=== PATIENT | female | born 1955 | race American Indian/Alaskan Native ===

== ENCOUNTER 2019-12-27 00:40 | Emergency (ER) | payer MEDICARE, OTHER, SELFPAY ==
[2019-12-27 00:44] VITALS: BP 130/61; PULSE 94; RESP 18; TEMP 36.6; O2SAT 100; BMI 35.9
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
--- NOTE | 2019-12-27 00:59 | DI.CT.S_ITS ---
PROCEDURE: CT ABDOMEN PELVIS W CON INDICATIONS: Bilateral upper abdominal pain TECHNIQUE: After the administration of intravenous contrast, 5 mm thick sections acquired from the diaphragm to the symphysis. 5 mm coronal and sagittal reformats were acquired. For radiation dose reduction, the following was used: automated exposure control, adjustment of mA and/or kV according to patient size. COMPARISON: None. FINDINGS: Image quality: Excellent. ABDOMEN: Lung bases: There is a small left lower lobe pulmonary nodule measuring up to 6 mm. Mild dependent atelectasis and scarring are also demonstrated. Heart size is normal. Solid organs: Evaluation of the liver demonstrates no focal hepatic lesions. The gallbladder is surgically absent. There is mild biliary ductal dilatation likely related to prior cholecystectomy. Pancreas enhances normally. No peripancreatic fat stranding or fluid collections. No pancreatic duct dilatation. The spleen is normal in size. No adrenal nodules. Kidneys demonstrate no hydronephrosis. There is focal renal cortical thinning in the superior pole of the left kidney which may represent sequelae of prior infection, trauma, or infarct. Peritoneum and bowel: Bowel loops demonstrate normal wall thickness and caliber. The appendix is normal in appearance. There is mild colonic diverticulosis without acute diverticulitis. No free fluid or air. Nodes and vessels: No retroperitoneal or mesenteric adenopathy by size criteria. Aorta and inferior vena cava are normal in size. Miscellaneous: No ventral hernias. PELVIS: Genitourinary: There is slight concentric bladder wall thickening. The uterus is surgically absent. Miscellaneous: No inguinal hernias or adenopathy. Bones: No suspicious bony lesions. No vertebral body compression fractures. IMPRESSION: 1. No definite acute intra-abdominal abnormality to correlate with patient's pain symptoms. 2. Small left lower lobe 6 mm pulmonary nodule is indeterminate. Recommend comparison with prior outside studies if available. In the absence of prior exams, a follow-up chest CT is recommended in 12 months to demonstrate stability. 3. Colonic diverticulosis without acute diverticulitis. 4. Slight concentric bladder wall thickening may be incidental or reflect a mild cystitis. Concordant with preliminary interpretation. Dictated by: Suhail Sykes M.D. on 12/27/2019 at 9:20 Approved by: Suhail Sykes M.D. on 12/27/2019 at 9:26
[2019-12-27 01:14] LABS: Add Manual Diff / Slide Review NO; Basophils Absolute Auto 0 /uL (0-100); Basophils Percent Auto 0.5 % (0-2); Eosinophils Absolute Auto 100 /uL (0-450); Hematocrit 40.9 % (36-46); Hemoglobin 13.6 g/dL (12.0-16.0); Lymphocytes Absolute Auto 1100 /uL (1100-4500); Lymphocytes Percent Auto 14.1 % (25-40); Mean Corpuscular HGB Conc 33.1 % (30-36); Mean Corpuscular Hemoglobin 28.1 PG (26-34); Monocytes Absolute Auto 700 /uL (0-900); Monocytes Percent Auto 9.5 % (3-14); Neutrophils Absolute Auto 5900 /uL (1500-7000); Neutrophils Percent Auto 74.9 % (50-75); Platelet Count 290 X10^3/uL (150-400); Red Blood Cell Count 4.82 X10^6/uL (4.0-5.2); Red Cell Distribution Width 14.1 % (11.6-14.8); White Blood Cell Count 7.9 X10^3/uL (4.5-11.0)
[2019-12-27 01:20] LABS: Lipase 44 U/L (23-300)
[2019-12-27 01:22] LABS: Alanine Aminotransferase 17 IU/L (<35); Albumin Globulin Ratio 1.1 (1.0-2.8); Alkaline Phosphatase 98 U/L (38-126); Aspartate Aminotransferase 18 IU/L (14-36); BUN Creatinine Ratio 13.2 (6-22); Bilirubin Total 0.4 mg/dL (0.2-1.3); Blood Urea Nitrogen 9 mg/dL (7-17); Calcium 9.1 mg/dL (8.4-10.2); Carbon Dioxide 32 mmol/L (22-32); Chloride 102 mmol/L (98-107); Estimated Glomerular Filt Rate > 60.0 mL/min (>60); Globulin 3.5 g/dL (1.7-4.1); Glucose 205 mg/dL (80-110); HEMOLYSIS 27 (0-50); Potassium 4.8 mmol/L (3.4-5.1); Sodium 138 mmol/L (137-145); Total Protein 7.5 g/dL (6.3-8.2)
[2019-12-27] MEDS: SODIUM CHLORIDE 0.9% 1,000 ML 1000 ML IV (01:47)
[2019-12-27] MEDS: metroNIDAZOLE 250 MG TABLET 500 MG PO (02:50)
[2019-12-27 03:24] VITALS: BP 159/73; PULSE 100; RESP 16; O2SAT 97
[2019-12-29 20:52] LABS: Chlamydia trachomatis Negative (Negative); Mycoplasma genitalium Negative (Negative); Neisseria gonorrhoeae Negative (Negative)
== END 2019-12-27 03:25 | disposition home or self-care (01) ==
LOC: ED 03:18
PROVIDERS: Emergency Provider Emergency Medicine
DX: N76.0 Acute vaginitis (principal); M54.5 Low back pain; R30.0 Dysuria; L29.2 Pruritus vulvae; R07.9 Chest pain, unspecified
CPT/HCPCS: 36415; 74177; 80053; 81003; 83690; 85025; 87081; 87210; 87220; 87491; 87591; 93005; 93010; 96360; 99284; Q9967

== ENCOUNTER 2020-05-18 02:06 | Emergency (ER) | payer MEDICARE, OTHER, SELFPAY ==
[2020-05-18 02:19] VITALS: BP 125/55; PULSE 90; RESP 18; TEMP 36.7; O2SAT 96; BMI 34.0
--- NOTE | 2020-05-18 02:20 | PC.NURSE ---
Coordinator confirmed that we do not carry Invega. informed
--- NOTE | 2020-05-18 02:25 | ED_ITS ---
HPI - General Adult General Chief complaint: Recheck/Abnormal Lab/Rx Stated complaint: Meeds medication Time Seen by Provider: 05/18/20 02:16 Source: patient Mode of arrival: Ambulatory Limitations: no limitations History of Present Illness HPI narrative: Patient here for request to have her dose of Invega. She states he has been 9 days since she was was to have it monthly. She goes to local clinic here in town. We do not carry that medication here. In the hospital. Denies any SI or HI. Patient was waiting at the clinic tonight, please informed her that she cannot be waiting at the facility until it opens. She came here to see if we have the medication. We do not. We called switch house operator to check. Related Data Allergies Allergy/AdvReac Type Severity Reaction Status Date / Time alendronate sodium Allergy Verified 05/18/20 02:19 Penicillins Allergy Verified 05/18/20 02:19 Review of Systems Review of Systems Narrative: GENERAL: Denies chills, fatigue, malaise, fever, sweats. HEENT: Denies sinus pain, ear pain, sore throat RESPIRATORY: Denies dyspnea, cough CARDIOVASCULAR: Denies chest pain, palpitations GASTROINTESTINAL: Denies nausea, vomiting, abdominal pain : Denies dysuria, frequency, hematuria MUSCULOSKELETAL: denies muscle or bony pain SKIN: Denies rash, skin lesions NEUROLOGIC: Denies weakness, numbness PSYCH: No SI or HI ROS Unobtainable: All systems reviewed & are unremarkable except as noted in HPI and below Patient History Medical History Medical history unknown Social History Smoking Status: Current every day smoker Smoking Status: Current every day smoker tobacco type: cigarettes alcohol intake frequency: holidays/special occasions only Substance Use Type: does not use Exam Narrative Exam Narrative: GENERAL: in no distress, not toxic not dyspneic, well groomed. Not disheveled HEAD: Normocephalic. EYES: Pupils equal round CARDIOVASCULAR: Regular rate and rhythm without murmurs RESPIRATORY: Clear to auscultation. Breath sounds equal bilaterally. No wheezes, rales, or rhonchi. GASTROINTESTINAL: Abdomen soft, non-tender EXTREMITIES: No gross deformities. BACK: No flank tenderness. NEURO: AOx4. SKIN: Warm and dry PSYCH: Not anxious, is cooperative, no SI or HI, no flight of ideas. No pressured speech. Not combative. Initial Vital Signs Initial Vital Signs: Vital Signs Temperature 98.0 F 05/18/20 02:19 Pulse Rate 90 05/18/20 02:19 Respiratory Rate 18 05/18/20 02:19 Blood Pressure 125/55 L 05/18/20 02:19 Pulse Oximetry 96 05/18/20 02:19 Course Course Course Narrative: No new issues during course of stay, patient did not stay to wait for discharge papers Reevaluation(s) Reevaluation #1: Informed patient we do not have the medication. She states she understands. She states she will go back home and wait for the clinic to open. Time: 02:32 Vital Signs Vital signs: Vital Signs - 8 hr 05/18/20 02:19 Temperature 98.0 F Pulse Rate 90 Respiratory Rate 18 Blood Pressure 125/55 L Pulse Oximetry 96 Medical Decision Making Differential Diagnosis Differential Diagnosis: Medication refill MDM Narrative Medical decision making narrative: Appropriate for discharge. Patient denies any SI or HI. Patient is cooperative. She understands we do not care that medication Discharge Plan Departure Patient Disposition: Home Clinical Impression: Encounter for medication refill Instructions: How to Refill a Prescription Activity Restrictions/Additional Instructions: Return if worse or if any questions or concerns. Go to your clinic this morning when it opens to have your Invega medication.
--- NOTE | 2020-05-18 02:40 | PC.NURSE ---
Pt came back immediately after being d/c and she had found her last unopened rx of invega 234mg. Cleared the box/dose/correct med with Dr. Mcgee and Danielle, chain saw mechanic and MD okayed for medication to be administered. Dose was given in pt's R deltoid per pt's request.
== END 2020-05-18 02:32 | disposition home or self-care (01) ==
PROVIDERS: Emergency Provider Emergency Medicine
DX: Z76.0 Encounter for issue of repeat prescription (principal)
CPT/HCPCS: 99281

== ENCOUNTER 2020-06-16 00:48 | Emergency (ER) | payer MEDICARE, OTHER, SELFPAY ==
--- NOTE | 2020-06-16 00:51 | ED_ITS ---
HPI - General Adult General Chief complaint: Recheck/Abnormal Lab/Rx Stated complaint: has lump on back of head, itching mutiple complain Time Seen by Provider: 06/16/20 00:51 History of Present Illness HPI narrative: 65-year-old woman with myriad of unspecific requests and complaints who would like her Invega injection. She states that she does not have a psychiatric diagnosis rather she has only a ?chemical imbalance ?. She describes years of psychiatric medications as well as psychiatric hospitalizations at [facility] when she was ?out of her mind?. She also describes visits to various other emergency department and interactions with psychiatric care. She states that she has been banned from the [facility]. The provider there who had been prescribing her Invega apparently has discharged her from the practice. The patient has reportedly gone to the pharmacy multiple times daily asking for her medication and has now been banned from the pharmacy. She states that she did talk to someone at [facility] today and there were 2 people who were working on straightening out the issues but they were not able to obtain her Invega today. She states that it is approximately 10 days overdue. From this point, the conversation became significantly more tangential. She has a myriad of complaints including dry skin, a bump on her head, multiple complaints of persecution (although, in light of the various clinics and pharmacies the apparently do have restraining orders out against her these complaints of persecution may be real), she states that she does not feel safe. She does have a car and it sounds [place] [facility] and has not had much clinical interaction with [facility] or clinics in [place]. Other conversation continued, she did have normal speech fluency and clearly understand some of the difficulties and intricacies of the medical system. She describes trying most of the antipsychotics that I discussed as an option to her Invega. She requested brand name only and went on to along explanation of requiring Plaquenil as a brand only. As our conversation joel to a close her requests and manipulative behavior began to escalate. I was forced to explain that in an emergency department we are able to help with an emergent situation and the plethora of issues that she was bringing up at the end of our discussion were not appropriate for further evaluation in the emergency department. Related Data Previous Rx's Medication Instructions Recorded olanzapine [Zyprexa] 20 mg PO BEDTIME #10 tab 03/05/21 Allergies Allergy/AdvReac Type Severity Reaction Status Date / Time alendronate sodium Allergy Verified 05/18/20 02:19 Penicillins Allergy Verified 05/18/20 02:19 Review of Systems Review of Systems ROS Unobtainable: All systems reviewed & are unremarkable except as noted in HPI and below Patient History Medical History Co-occurrence of multiple psychiatric disorders Medical history unknown Social History Smoking Status: Current every day smoker Smoking Status: Current every day smoker tobacco type: cigarettes alcohol intake frequency: holidays/special occasions only Substance Use Type: does not use Exam Narrative Exam Narrative: General: Healthy appearing, in no acute distress. Able to speak in full sentences, slightly tangential HEENT: Moist mucous membranes, normal sclera with reactive pupils, she has a small follicular cyst at the occiput of her scalp that is not infected Respiratory: Full and symmetrical air movement Cardiac: Regular rate and rhythm Abdomen: Soft, nontender, good bowel tones, no flank pain Skin: Very dry with excoriation to the back. There is a 2 x 3 cm depigmented area over the right flank that appears chronic Neurologic: Grossly neurologically intact with no obvious asymmetries or abnormalities Extremities: No trauma, well perfused Psych: Tangential in slightly disorganized. No signs of auditory or visual hallucinations. Speech is nonpressured. Behavior is extraordinarily manipulative Initial Vital Signs Initial Vital Signs: Vital Signs Temperature 97.8 F 06/16/20 01:00 Pulse Rate 96 H 06/16/20 01:00 Respiratory Rate 20 06/16/20 01:00 Blood Pressure 141/77 H 06/16/20 01:00 Pulse Oximetry 100 06/16/20 01:00 Course Vital Signs Vital signs: Vital Signs - 8 hr 06/16/20 01:00 Temperature 97.8 F Pulse Rate 96 H Respiratory Rate 20 Blood Pressure 141/77 H Pulse Oximetry 100 Medical Decision Making Medical Records Medical records reviewed: Yes I reviewed the patient's medical records. MDM Narrative Medical decision making narrative: 65-year-old woman clearly with multiple psychiatric issues that she is not able to elucidate requesting an injection of Invega. Explained to her that this is not an option through an inpatient or emergency facility. It sounds like she is had multiple behavioral issues with prior psychiatric providers as well as pharmacies which are precipitating the difficulties in obtaining the Invega. Offered multiple options of second- generation antipsychotics as a bridge. Was finally willing to except olanzapine but demanded that it be brand only. Finally offered her a prescription for 20 mg of olanzapine at bedtime tried to review findings and side effects and stressed that this was simply a bridging option until the Invega was available. Encouraged her to follow-up with the [facility] team that seem to be helping her earlier today. At this point she is neither suicidal nor homicidal. She is able to take care of herself and function outside of the manipulative and axis II psychiatric traits that she is exhibiting. She is safe for discharge Discharge Plan Departure Patient Disposition: Home Clinical Impression: Encounter for medication refill Activity Restrictions/Additional Instructions: As you have been told with previous ER visits, Invega is not a medication that will ever be available through any emergency department. This needs to be through your outpatient psychiatric clinic. You do need to follow-up with [facility], the clinic that seem to be helping you earlier today, to figure out how to get your Invega prescribed, picked up and injected. In the meantime, olanzapine/Zyprexa is very similar to Invega and something I can prescribe until your able to get the shot. The equivalent does to the Invega shot for the olanzapine/Zyprexa is 20 mg. I would recommend taking it in the evening as it can make you sleepy. At your request I will write the prescription for Zyprexa only. You do need to follow through with daytime visits to your psychiatric community sources. Prescriptions: New olanzapine [Zyprexa] 20 mg tablet 20 mg PO BEDTIME Qty: 10 RF: 0
[2020-06-16 01:00] VITALS: BP 141/77; PULSE 96; RESP 20; TEMP 36.6; O2SAT 100
--- NOTE | 2020-06-16 01:29 | PC.NURSE ---
She was given a sandwich and juice and ate it.
== END 2020-06-16 01:41 | disposition home or self-care (01) ==
PROVIDERS: Emergency Provider Emergency Medicine
DX: Z76.0 Encounter for issue of repeat prescription (principal)
CPT/HCPCS: 99281

== ENCOUNTER 2020-07-18 19:19 | Emergency (ER) | payer MEDICARE, OTHER, SELFPAY ==
[2020-07-18 19:33] VITALS: BP 178/82; PULSE 105; RESP 21; TEMP 36.9; O2SAT 98; BMI 40.3
--- NOTE | 2020-07-18 23:30 | PC.NURSE ---
Pt resting in bed. Currently denies pain and denies shortness of breath. Assisted to bathroom. CBG 291
[2020-07-19 02:53] VITALS: BP 152/84; PULSE 71; RESP 14; O2SAT 95
[2020-07-19 03:37] VITALS: BP 154/70; PULSE 97; RESP 18; O2SAT 97
--- NOTE | 2020-07-19 05:02 | ED_ITS ---
HPI - Female Genitourinary General Chief complaint: Upper Respiratory Symptoms Stated complaint: pain, fever, difficulty breathing, multiple issues Time Seen by Provider: 07/19/20 04:47 Source: patient Mode of arrival: Ambulatory Limitations: no limitations History of Present Illness HPI Narrative: Patient is a 65-year-old female with history of psychiatric illness who presents with painful frequent urination. She says it is every day. She is currently sleepy after being in the emergency department for 9 hours. She has frequently comes to the ED and requesting an Invega shot which apparently she did initially request she has yet to receive an Invega shot during any of her emergency department visits. She is sleepy but arousable and answers some questions she denies fever chills back pain nausea vomiting or stomach pain. MD Complaint: dysuria Onset (ago): day(s) Related Data Previous Rx's Medication Instructions Recorded olanzapine [Zyprexa] 20 mg PO BEDTIME #10 tab 06/16/20 Allergies Allergy/AdvReac Type Severity Reaction Status Date / Time alendronate sodium Allergy Verified 05/18/20 02:19 Penicillins Allergy Verified 05/18/20 02:19 Review of Systems Review of Systems ROS Unobtainable: All systems reviewed & are unremarkable except as noted in HPI and below Constitutional Constitutional: Denies chills and Denies fever(s) Cardiovascular Cardiovascular: Denies chest pain, Denies leg edema and Denies dyspnea Respiratory Respiratory: Denies cough and Denies dyspnea Gastrointestinal Gastrointestinal: Denies abdominal pain, Denies cramping and Denies nausea Integumentary/Breasts Skin/Breast: Denies rash Neurologic Neurologic: Denies convulsions Patient History Medical History Co-occurrence of multiple psychiatric disorders Medical history unknown tobacco type: cigarettes alcohol intake frequency: a few times a month Substance Use Type: does not use Exam Initial Vital Signs Initial Vital Signs: Vital Signs Temperature 98.4 F 07/18/20 19:33 Pulse Rate 105 H 07/18/20 19:33 Respiratory Rate 21 07/18/20 19:33 Blood Pressure 178/82 H 07/18/20 19:33 Pulse Oximetry 98 07/18/20 19:33 GENERAL: Sleeping overweight female HEENT: Head atraumatic,EOMI, pupils reactive, face symmetric, moist mucous membranes CARDIOVASCULAR: Regular rate and rhythm without murmurs, rubs or gallops. RESPIRATORY: Breath sounds equal bilaterally, no wheezes rales or rhonchi. ABDOMEN: Soft, nontender. Normoactive bowel sounds all 4 quadrants. No guarding or rebound. : No flank pain EXTREMITIES: Normal range of motion, no clubbing or edema. Neurovascularly intact NEUROLOGICAL: No focal deficit SKIN: Warm, dry, no laceration, no petechiae, no rashes or lesions. Course Vital Signs Vital signs: Vital Signs - 8 hr 07/19/20 02:53 07/19/20 03:37 07/19/20 05:51 Temperature 99.5 F Pulse Rate 71 97 H 75 Respiratory Rate 14 18 16 Blood Pressure 152/84 H 154/70 H 115/62 Pulse Oximetry 95 97 98 MDM - Female Genitourinary Lab Data Labs: Point of Care Testing Glucose POC 291 Urine Dip Bedside Urine Glucose 1000 mg/dl Bedside Urine Bilirubin - Negative Bedside Urine Ketone - Negative Urine Specific [place] 1.020 Bedside Urine Occult Blood - Negative Bedside Urine Protein - Negative Bedside Urine Urobilinogen - Negative Bedside Urine Nitrite - Negative Bedside Urine Leukocytes - Negative Esterase Discharge Plan Departure Patient Disposition: Home Clinical Impression: Feared complaint without diagnosis Activity Restrictions/Additional Instructions: *You have been diagnosed with you do not have a bladder infection *Continue to take medications as directed *Follow up with your primary care provider in 2-3 days *Return to ER if you should have any new, worsening or concerning symptoms Prescriptions: No Action olanzapine [Zyprexa] 20 mg tablet 20 mg PO BEDTIME Qty: 10 RF: 0
[2020-07-19 05:51] VITALS: BP 115/62; PULSE 75; RESP 16; TEMP 37.5; O2SAT 98
== END 2020-07-19 05:54 | disposition home or self-care (01) ==
PROVIDERS: Emergency Provider Emergency Medicine
DX: R30.0 Dysuria (principal); R35.0 Frequency of micturition
CPT/HCPCS: 81003; 82962; 99282

== ENCOUNTER 2020-09-01 20:44 | Emergency (ER) | payer MEDICARE, OTHER, SELFPAY ==
[2020-09-01 20:49] VITALS: BP 143/63; PULSE 71; RESP 16; TEMP 36.7; O2SAT 98; BMI 36.8
--- NOTE | 2020-09-01 21:03 | PC.NURSE ---
Pt verbally abusive to staff, yelling from room. Call martinez in place and encouraged pt to utilize. Pt accused me of keeping her away from her. informed that if he presented to see her we would be happy to allow him in. She states that her family is keeping him from seeing her. Encouraged to call her . States she is not happy with care, told she could leave at any point in time. Side rail down.
[2020-09-01] MEDS: IBUPROFEN 400 MG TABLET PO (21:10)
--- NOTE | 2020-09-01 21:12 | PC.NURSE ---
Pt states pain in both knees, pt ambulated to the bathroom and is currently walking around the room.
--- NOTE | 2020-09-01 21:18 | DI.RAD.S_ITS ---
PROCEDURE: XR KNEE LT 3V INDICATIONS: knee pain, possible injury TECHNIQUE: 3 views of the knee were acquired. COMPARISON: None. FINDINGS: Bones: No fractures or dislocations. No suspicious bony lesions. Severe degenerative arthritis with tricompartment osteophytes and severe medial compartment joint space loss. Soft tissues: Small joint effusion. No suspicious soft tissue calcifications. IMPRESSION: Severe degenerative arthritis. No evidence acute bony abnormality of the left knee. If clinical suspicion and/or symptoms persist, further assessment with repeat plain films, or advanced imaging (e.g., CT, MRI, or bone scan) may be helpful for further assessment. Dictated by: Davie Hall M.D. on 09/01/2020 at 21:59 Approved by: Davie Hall M.D. on 09/01/2020 at 22:00
--- NOTE | 2020-09-01 21:18 | DI.RAD.S_ITS ---
PROCEDURE: XR KNEE RT 3V INDICATIONS: severe pain, swelling, possible injury TECHNIQUE: 3 views of the knee were acquired. COMPARISON: None. FINDINGS: Bones: No fractures or dislocations. No suspicious bony lesions. Mild tricompartment degenerative arthritis. Soft tissues: No joint effusion. No suspicious soft tissue calcifications. IMPRESSION: Degenerative arthritis. No evidence acute bony abnormality of the right knee. If clinical suspicion and/or symptoms persist, further assessment with repeat plain films, or advanced imaging (e.g., CT, MRI, or bone scan) may be helpful for further assessment. Dictated by: Davie Hall M.D. on 09/01/2020 at 22:00 Approved by: Davie Hall M.D. on 09/01/2020 at 22:01
== END 2020-09-01 22:35 | disposition left against medical advice (07) ==
PROVIDERS: Emergency Provider Emergency Medicine
DX: M25.562 Pain in left knee (principal); M25.561 Pain in right knee
CPT/HCPCS: 73562; 99283

== ENCOUNTER 2020-09-02 21:10 | Emergency (ER) | payer MEDICARE, OTHER, SELFPAY ==
[2020-09-02 21:34] VITALS: BP 156/77; PULSE 93; RESP 18; TEMP 37.1; O2SAT 99
[2020-09-02 21:57] LABS: Bacteria Urine None Seen; RBC Urine None Seen (0-5/HPF)
[2020-09-02 22:01] LABS: Appearance Urine UA CLEAR; Bilirubin Urine UA NEGATIVE (NEGATIVE); Color Urine UA YELLOW; Glucose Urine UA TRACE g/dL (Negative); Ketones Urine UA NEGATIVE (NEGATIVE); Leukocyte Esterase Urine UA TRACE (NEGATIVE); Nitrite Urine UA NEGATIVE (Negative); Occult Blood Urine UA NEGATIVE (Negative); Protein Urine UA NEGATIVE (Negative); Specific Gravity Urine UA 1.025 (1.000-1.035)
[2020-09-02 22:04] LABS: Pregnancy Test Urine Negative (Negative)
[2020-09-02 22:07] LABS: Ur Creatinine 20 (Normal); Ur Specific Gravity 1.025 (Normal); Urine pH 5 (Normal)
[2020-09-02 22:08] LABS: UR Morphine/Opiate cutoff 300 Negative (Negative); Urine Amphetamines Negative (Negative); Urine Barbiturates Negative (Negative); Urine Benzodiazepines Negative (Negative); Urine Cocaine Negative (Negative); Urine MDMA Negative (Negative); Urine Methadone Negative (Negative); Urine Methamphetamines Negative (Negative); Urine Oxycodone Negative (Negative); Urine Phencyclidine Negative (Negative); Urine Tetrahydrocannabinol Negative (Negative); Urine Tricyclic Antidepressant Negative (Negative)
[2020-09-02 22:15] LABS: Squamous Epithelial Cell Urine 1-5 /HPF (0-5/HPF); WBC Urine 0-1/HPF (0-5/HPF)
[2020-09-02 22:16] LABS: Culture Indicated Urine Specimen Cultured; Mucus Urine 1+ (Negative)
--- NOTE | 2020-09-02 22:19 | ED_ITS ---
HPI - Skin/Abscess/Foreign Bdy General Chief complaint: Skin/Abscess/Foreign Body Stated complaint: Fells like bugs are crawling all over, skin burnin Time Seen by Provider: 09/02/20 21:18 Source: patient Mode of arrival: Wheelchair Limitations: no limitations History of Present Illness HPI narrative: 65F smoker with history of HTN, schizophrenia, NIDDM, and delusional disorder returns to the emergency department this evening for evaluation. She comes by EMS for evaluation of bilateral knee pain stating that she has had torn meniscus in both knees for quite some time and aggravated them by walking for the normal today. Additionally she states that she feels like she has bugs crawling on her skin and her head and bottom itch. She states she has not been taking her medication for quite some time and is quite angry that no one has given her medications. She denies any suicidal or homicidal ideation. She has tangential responses to most questions but is very articulate and well-spoken. MD complaint: other Tetanus up to date: unsure Severity: mild Quality: burning Pain Consistency: constant Relieving factors: none Exacerbating factors: movement Treatments prior to arrival: none Related Data Previous Rx's Medication Instructions Recorded olanzapine [Zyprexa] 20 mg PO BEDTIME #10 tab 06/16/20 metformin 500 mg PO DAILY #20 tab 09/03/20 paliperidone palmitate [Invega 234 mg IM QMONTH #1.5 ml 09/03/20 Sustenna] Allergies Allergy/AdvReac Type Severity Reaction Status Date / Time alendronate sodium Allergy Verified 09/01/20 20:53 Penicillins Allergy Verified 09/01/20 20:53 Review of Systems Constitutional Constitutional: Denies chills, Denies fatigue, Denies fever(s), Denies frequent falls, Denies lethargy and Denies weakness Eyes Eyes: Denies change in vision, Denies eye discharge, Denies irritation and Denies loss of vision ENT Ears, Nose, Mouth, and Throat: Denies change in voice, Denies dizziness, Denies neck pain, Denies sore throat and Denies throat swelling Cardiovascular Cardiovascular: Denies chest pain, Denies irregular heart rhythm, Denies lightheadedness, Denies palpitations, Denies dyspnea, Denies dyspnea on exertion and Denies orthopnea Respiratory Respiratory: Denies cough, Denies dyspnea, Denies dyspnea on exertion and Denies wheezing Gastrointestinal Gastrointestinal: Denies abdominal pain, Denies change in bowel habits, Denies diarrhea, Denies nausea and Denies vomiting Musculoskeletal Musculoskeletal: Reports arthralgias, Reports joint swelling, Reports limited r nata of motion, Denies neck pain and Denies numbness Integumentary/Breasts Skin/Breast: Denies pruritus, Denies erythema, Denies rash and Denies wounds Neurologic Neurologic: Denies behavioral changes, Denies confusion, Denies dizziness, Denies frequent falls, Denies loss of vision, Denies numbness and Denies weakness Psychiatric Psychiatric: Denies anxiety, Denies behavioral changes, Denies confusion, Denies depression, Denies homicidal ideation and Denies suicidal ideation Endocrine Endocrine: Denies fatigue, Denies flushing and Denies palpitations Hematologic/Lymphatic Hematologic/Lymphatic: Denies easy bruising Allergic/Immunologic Allergic/Immunologic: Denies urticaria, Denies throat swelling and Denies wheezing Patient History Medical History Co-occurrence of multiple psychiatric disorders Medical history unknown Social History Smoking Status: Current every day smoker Smoking Status: Current every day smoker tobacco type: cigarettes alcohol intake frequency: a few times a month Substance Use Type: does not use Exam Narrative Exam Narrative: GEN: AOx3 and in mild distress, complaining of knee pain, angry and confrontational but alert and aware. Demonstrates capacity to make her own decisions EYES: Pupils are equal, round, and reactive to light and accommodation. Extraoccular muscles are intact bilaterally. There is no subconjunctival hemorrhage or exudate. CHEST: Lungs are clear to auscultation bilaterally and free of wheezes, rales, or rhonchi. Heart rate is regular rhythm, there are no murmurs, clicks, rubs, or gallops. There is no chest wall tenderness. ABD: Abdomen is soft and nontender. There is no guarding or rebound. Bowel sounds are normal in all 4 quadrants. There is no mass or organomegaly. EXT: Full painless ROM of all extremities with no loss of sensation or strength. No knee effusion, erythema, ligamentous instability, or external manifestation of injury SKIN: Warm, pink, and dry. No erythema or rash Initial Vital Signs Initial Vital Signs: Vital Signs Temperature 98.8 F 09/02/20 21:34 Pulse Rate 93 H 09/02/20 21:34 Respiratory Rate 18 09/02/20 21:34 Blood Pressure 156/77 H 09/02/20 21:34 Pulse Oximetry 99 09/02/20 21:34 Course Orders Ordered: ED Orders 09/02/20 21:45 Test Urine Stat Urinalysis and Microscopic Stat Urine Culture Stat Urine Drug Screen, Rapid Stat Vital Signs Vital signs: Vital Signs - 8 hr 09/02/20 21:34 Temperature 98.8 F Pulse Rate 93 H Respiratory Rate 18 Blood Pressure 156/77 H Pulse Oximetry 99 MDM - Skin/Abscess/Foreign Bdy Lab Data Labs: Lab Results 09/02/20 09/02/20 09/02/20 Range/Units 21:45 21:45 21:45 Urine Color Yellow Urine Appearance Clear Urine pH 6.0 (4.5-8.0) Ur Specific [place] 1.025 (1.000-1.035) Urine Protein Negative (Negative) Urine Glucose (UA) Trace H (Negative) g/dL Urine Ketones Negative (NEGATIVE) Urine Occult Blood Negative (Negative) Urine Nitrate Negative (Negative) Urine Bilirubin Negative (NEGATIVE) Urine Urobilinogen 1.0 (0.2) E.U./dL Ur Leukocyte Esterase Trace H (NEGATIVE) Urine RBC None seen (0-5/HPF) Urine WBC 0-1/hpf (0-5/HPF) Ur Squamous Epith Cells 1-5 /hpf (0-5/HPF) Urine Bacteria None seen (None) Urine Mucus 1+ H (Negative) Urine Yeast 5-10/hpf H (None) Ur Culture Indicated? Specimen cultured Urine Test Negative (Negative) U Opiates 300ng/mL cut Negative (Negative) Ur Oxycodone Screen Negative (Negative) Urine Methadone Screen Negative (Negative) Ur Barbiturates Screen Negative (Negative) U Tricyclic Antidepress Negative (Negative) Ur Phencyclidine Scrn Negative (Negative) Ur Amphetamines Screen Negative (Negative) U Methamphetamines Scrn Negative (Negative) Ur MDMA Scrn (Ecstasy) Negative (Negative) U Benzodiazepines Scrn Negative (Negative) Urine Cocaine Screen Negative (Negative) U Marijuana (THC) Screen Negative (Negative) MDM Narrative Medical decision making narrative: Patient demanded to go outside and smoke a cigarette, she left before full Against Medical Advice discussion could be performed. She was given the opportunity to return immediately for any change in the way she feels or her concerns. Attempts were made to discuss potential risks and benefit but she would have none of it and demanded to leave. Discharge Plan Departure Patient Disposition: Left Against Medical Advice Clinical Impression: Co-occurrence of multiple psychiatric disorders Prescriptions: No Action olanzapine [Zyprexa] 20 mg tablet 20 mg PO BEDTIME Qty: 10 RF: 0 metformin 500 mg tablet 500 mg PO DAILY Qty: 20 RF: 0 Invega Sustenna 234 mg/1.5 mL syringe 234 mg IM QMONTH Qty: 1.5 RF: 0 Stand Alone Forms: Against Medical Advice
== END 2020-09-02 22:10 | disposition left against medical advice (07) ==
PROVIDERS: Emergency Provider Emergency Medicine
DX: L29.9 Pruritus, unspecified (principal)
CPT/HCPCS: 80305; 81001; 81025; 87086; 99281

== ENCOUNTER 2020-09-03 01:18 | Emergency (ER) | payer MEDICARE, OTHER, SELFPAY ==
[2020-09-03 01:33] VITALS: BP 141/73; PULSE 101; RESP 18; TEMP 36.2; O2SAT 96
--- NOTE | 2020-09-03 01:50 | ED_ITS ---
HPI - Skin/Abscess/Foreign Bdy General Chief complaint: Skin/Abscess/Foreign Body Stated complaint: feel likes bugs are crawling on her Time Seen by Provider: 09/03/20 01:20 Source: patient Mode of arrival: Ambulatory Limitations: altered mental status History of Present Illness HPI narrative: 65F smoker with history of HTN, schizophrenia, NIDDM, and delusional disorder returns to the emergency department this evening for evaluation. She is complaining of multiple things and her tangential descriptions maker a difficult historian to follow. She is redirectable and very well-spoken. She denies any recent trauma and states her primary concern is that she has bilateral knee pain and known meniscal injuries. She has had multiple visits for the same and has had reassuring physical exams and imaging. Additionally, she complains of a sharp and stabbing left-sided chest pain that seems to be worse with deep breaths and pressing. She denies recent travel, hemoptysis or significant shortness of breath. She has had a recent visit to outside hospital including CT angiogram which was negative and lower extremity Dopplers which were negative for pulmonary embolism. She denies fever chills nor nausea, vomiting or diarrhea. Additionally, she has ongoing vaginal itching. She had been seen at an outside facility and had pelvic exam with negative cultures and Gram stain 2 days ago. She states that she has been taking her medications as directed MD complaint: other Onset (ago): hour(s) Tetanus up to date: yes Location: generalized Relieving factors: none Exacerbating factors: none Context: none Associated symptoms: other Treatments prior to arrival: none Related Data Previous Rx's Medication Instructions Recorded olanzapine [Zyprexa] 20 mg PO BEDTIME #10 tab 06/16/20 metformin 500 mg PO DAILY #20 tab 09/03/20 paliperidone palmitate [Invega 234 mg IM QMONTH #1.5 ml 09/03/20 Sustenna] Allergies Allergy/AdvReac Type Severity Reaction Status Date / Time alendronate sodium Allergy Verified 09/01/20 20:53 Penicillins Allergy Verified 09/01/20 20:53 Review of Systems Constitutional Constitutional: Denies chills, Denies fatigue, Denies fever(s), Denies frequent falls, Denies lethargy and Denies weakness Eyes Eyes: Denies change in vision, Denies eye discharge, Denies irritation and Denies loss of vision ENT Ears, Nose, Mouth, and Throat: Denies change in voice, Denies dizziness, Denies neck pain, Denies sore throat and Denies throat swelling Cardiovascular Cardiovascular: Reports chest pain, Denies irregular heart rhythm, Denies lightheadedness, Denies palpitations, Denies dyspnea, Denies dyspnea on exertion and Denies orthopnea Respiratory Respiratory: Denies cough, Denies dyspnea, Denies dyspnea on exertion and Denies wheezing Gastrointestinal Gastrointestinal: Denies abdominal pain, Denies change in bowel habits, Denies diarrhea, Denies nausea and Denies vomiting Genitourinary Genitourinary: Reports vaginal pruritus Musculoskeletal Musculoskeletal: Reports arthralgias, Denies neck pain and Denies numbness Integumentary/Breasts Skin/Breast: Denies pruritus, Denies erythema, Denies rash and Denies wounds Neurologic Neurologic: Denies behavioral changes, Denies confusion, Denies dizziness, Denies frequent falls, Denies loss of vision, Denies numbness and Denies weakness Psychiatric Psychiatric: Denies anxiety, Denies behavioral changes, Denies confusion, Denies depression, Denies homicidal ideation and Denies suicidal ideation Endocrine Endocrine: Denies fatigue, Denies flushing and Denies palpitations Hematologic/Lymphatic Hematologic/Lymphatic: Denies easy bruising Allergic/Immunologic Allergic/Immunologic: Denies urticaria, Denies throat swelling and Denies wheezing Patient History Medical History Co-occurrence of multiple psychiatric disorders Medical history unknown Social History Smoking Status: Current every day smoker Smoking Status: Current every day smoker tobacco type: cigarettes alcohol intake frequency: a few times a month Substance Use Type: does not use Exam Narrative Exam Narrative: GENERAL: [65] year old patient appears stated age. Well- nourished, well-developed patient, in mild distress. GCS 15, alert and oriented x3. Walks without antalgic gait. She has good insight, and capacity to make decisions. HEAD: Atraumatic. Normocephalic. EYES: Pupils equal round and reactive. Extraocular motions intact. No scleral icterus. No injection or drainage. ENT: Nose without bleeding, purulent drainage. Throat without erythema, tonsillar hypertrophy or exudate. Airway patent. NECK: Trachea midline. Non tender CARDIOVASCULAR: Regular rate and rhythm without murmurs, gallops, or rubs. RESPIRATORY: Clear to auscultation. Breath sounds equal bilaterally. No wheezes, rales, or rhonchi. GASTROINTESTINAL: Abdomen soft, non-tender, nondistended. EXTREMITIES: No edema or joint tenderness. BACK: Nontender without deformity or crepitance. No flank tenderness. NEURO: AOx3. SKIN: No rash or erythema of visible areas Initial Vital Signs Initial Vital Signs: Vital Signs Temperature 97.2 F L 09/03/20 01:33 Pulse Rate 101 H 09/03/20 01:33 Respiratory Rate 18 09/03/20 01:33 Blood Pressure 141/73 H 09/03/20 01:33 Pulse Oximetry 96 09/03/20 01:33 Course Orders Ordered: ED Orders 09/03/20 01:31 Complete Blood Count AUTO DIFF Stat Comprehensive Metabolic Panel Stat Troponin & CK Cardiac Panel Stat 09/03/20 01:32 EKG-12 Lead Stat 09/03/20 02:16 CT head/brain wo con Stat Reevaluation(s) Reevaluation #1: patient resting comfortably. She states she hasn't had her meds in many months, we talked about whether or not she would want to see our executive secretary social welfare or if she would consider going to a facility to help get her on a stable regimen of mental health medications but she refuses. Vital Signs Vital signs: Vital Signs - 8 hr 09/03/20 01:33 Temperature 97.2 F L Pulse Rate 101 H Respiratory Rate 18 Blood Pressure 141/73 H Pulse Oximetry 96 MDM - Skin/Abscess/Foreign Bdy Imaging Data CT scan - head: Radiologist's Impression: No acute process Discharge Plan Departure Patient Disposition: Home Clinical Impression: Acute bilateral knee pain Instructions: DI for Knee Pain Activity Restrictions/Additional Instructions: *You have been diagnosed with [bilateral knee pain consistent with arthritis and possible meniscal injury] *What to do: *Please continue to take your regular medications as directed. [ ] New medication prescriptions sent to your pharmacy: [ ] [x ] New medication written as a paper prescription [ ] No new medications given *Please follow up with your primary care provider in 2-3 days, call for an appointment. Let them know you were seen in the Emergency Department and that we ask that you be seen in follow up. We will electronically transmit a record of today's note if your PCP is in our system *If you do not have a primary care provider please contact the [facility] Resource line at [phone]. They will ask some questions about your medical history and help get you set up with a doctor in the community. *Return to Emergency Department if you should have any new, worsening or concerning symptoms, such as [fever greater than 101 F, shaking chills, worsening pain, persistent vomiting or other bothersome symptoms] Prescriptions: New metformin 500 mg tablet 500 mg PO DAILY Qty: 20 RF: 0 Invega Sustenna 234 mg/1.5 mL syringe 234 mg IM QMONTH Qty: 1.5 RF: 0 No Action olanzapine [Zyprexa] 20 mg tablet 20 mg PO BEDTIME Qty: 10 RF: 0 Referrals: [facility] [Outside]
--- NOTE | 2020-09-03 02:16 | DI.CT.S_ITS ---
PROCEDURE: CT HEAD/BRAIN WO CON INDICATIONS: headaches TECHNIQUE: Noncontrast 4.5 mm thick angled axial sections acquired from the foramen magnum to the vertex, with coronal and sagittal reformats. For radiation dose reduction, the following was used: automated exposure control, adjustment of mA and/or kV according to patient size. COMPARISON: None. FINDINGS: Image quality: Streak artifact is seen from the earrings. This examination is limited by involuntary motion artifact. CSF spaces: Basal cisterns are patent. No extra-axial fluid collections. The ventricles are symmetric in size and shape. Brain: No intracranial bleeds or masses. There is cerebral volume loss for age, with resultant ventricular and sulcal prominence. There are periventricular and deep white matter chronic small vessel ischemic changes. There is intracranial internal carotid artery atherosclerosis. Skull and face: Calvarium and visualized facial bones appear intact, without suspicious lesions. Sinuses: Visualized sinuses and mastoids are clear. IMPRESSION: Limited study, without a cause of the patient's presenting symptoms identified. Note: No significant discrepancy from the preliminary report. Dictated by: Sanford Sloan M.D. on 09/03/2020 at 6:11 Approved by: Sanford Sloan M.D. on 09/03/2020 at 6:13
--- NOTE | 2020-09-03 02:20 | PC.NURSE ---
Stand by assist for Dr Matthews's evaluation. Pt reported she's been off her mental health meds for a few months, wants all the tests. Agrees to head CT. Dr Matthews offered social work or hospitalization to assist with stabilization, pt undecided. States, I'm not mental. Asks for us to phone her , Kristi, to come to bedside.
--- NOTE | 2020-09-03 03:24 | PC.NURSE ---
Patient declined a lab draw.
[2020-09-03 04:32] VITALS: BP 147/67; PULSE 86; RESP 14; TEMP 36.7; O2SAT 95
== END 2020-09-03 04:39 | disposition home or self-care (01) ==
PROVIDERS: Emergency Provider Emergency Medicine
DX: M25.562 Pain in left knee (principal); M25.561 Pain in right knee; R07.9 Chest pain, unspecified; L29.2 Pruritus vulvae; R51.9 Headache, unspecified
CPT/HCPCS: 70450; 93005; 99282; 99284

== ENCOUNTER 2020-09-07 01:22 | Emergency (ER) | payer MEDICARE, OTHER, SELFPAY ==
[2020-09-07] VITALS (13 sets, daily range): BP systolic 111–128; BP diastolic 54–57; PULSE 72–92; RESP 16–18; TEMP 36.6; O2SAT 82–98
--- NOTE | 2020-09-07 02:08 | ED_ITS ---
HPI - Recheck/Abnormal Lab/Rx <Halie Jimenez DO - Last Filed: 09/08/20 08:10> General Chief Complaint: Recheck/Abnormal Lab/Rx Stated Complaint: Back curvature, pain in spine, blood in urine Time Seen by Provider: 09/07/20 02:07 Source: patient Mode of arrival: Wheelchair Limitations: no limitations History of Present Illness HPI narrative: This is a 65-year-old female comes emergency department with multiple complaints. Patient states she would like to be admitted. Reason, she states she has 16 different reasons. One includes COVID but unclear if she means she has a COVID infection or she scared of it. Patient has a history of hypertension, schizophrenia, and IDDM, delusional disorder and has been at several hospitals recently over the last week including [facility] and here locally in [place]. Patient states she would like to rest at this time. She has clear speech but does not answer additional questions and goes to sleep. Related Data Previous Rx's Medication Instructions Recorded olanzapine [Zyprexa] 20 mg PO BEDTIME #10 tab 06/16/20 metformin 500 mg PO DAILY #20 tab 09/03/20 paliperidone palmitate [Invega 234 mg IM QMONTH #1.5 ml 09/03/20 Sustenna] Allergies Allergy/AdvReac Type Severity Reaction Status Date / Time alendronate sodium Allergy Verified 09/01/20 20:53 Penicillins Allergy Verified 09/01/20 20:53 Review of Systems <Halie Jimenez DO - Last Filed: 09/08/20 08:10> Review of Systems ROS Unobtainable: Other (patient did not give answers but is alert) Patient History <Halie Jimenez DO - Last Filed: 09/08/20 08:10> Medical History Co-occurrence of multiple psychiatric disorders Medical history unknown Social History Smoking Status: Current every day smoker Smoking Status: Current every day smoker tobacco type: cigarettes alcohol intake frequency: a few times a month Substance Use Type: does not use Exam <Halie Jimenez DO - Last Filed: 09/08/20 08:10> Narrative Exam Narrative: GENERAL: Alert and oriented, female appears stated age. Well- nourished. Well-developed patient in mild distress. Patient awakens easily to answer some questions but does not answer all. HEENT: Head normocephalic, atraumatic, EOMI, pupils reactive, face symmetric, moist mucous membranes NECK: Supple, full range of motion CARDIOVASCULAR: Regular rate and rhythm without murmurs, rubs or gallops. RESPIRATORY: Breath sounds equal bilaterally, no wheezes rales or rhonchi. ABDOMEN: Soft, nontender. Normoactive bowel sounds all 4 quadrants. No g uarding or rebound, rigidity, no mass : No CVA tenderness EXTREMITIES: Normal range of motion, no clubbing or edema. Neurovascularly intact NEUROLOGICAL: Cranial nerves II through XII grossly intact. Moving all extremities. SKIN: Warm, dry, no petechiae, no rashes or lesions. PSYCH: Denies suicidal intent or ideation. No homicidal ideation. Initial Vital Signs Initial Vital Signs: Vital Signs Temperature 97.8 F 09/07/20 01:30 Pulse Rate 84 09/07/20 01:30 Respiratory Rate 16 09/07/20 01:30 Blood Pressure 122/57 L 09/07/20 01:30 Pulse Oximetry 98 09/07/20 01:30 <Gómez Quiros DO - Last Filed: 09/07/20 10:17> Initial Vital Signs Initial Vital Signs: Vital Signs Temperature 97.8 F 09/07/20 01:30 Pulse Rate 84 09/07/20 01:30 Respiratory Rate 16 09/07/20 01:30 Blood Pressure 122/57 L 09/07/20 01:30 Pulse Oximetry 98 09/07/20 01:30 Scores <Halie Jimenez DO - Last Filed: 09/08/20 08:10> GCS Josephine coma scale eye opening: Spontaneous Johanne coma scale verbal response: Orientated Josephine coma scale motor response: Obey commands Johanne coma scale total score: 15 Course <Halie Jimenez DO - Last Filed: 09/08/20 08:10> Orders Ordered: ED Orders 09/07/20 02:14 Consult to [facility] - Guidance Services Coordinator Urgent Urine Drug Screen, Rapid Stat 09/07/20 02:30 Complete Blood Count AUTO DIFF Stat Comprehensive Metabolic Panel Stat Ethanol (ETOH) Stat TSH w/ Reflex to FT4 Stat 09/07/20 04:35 COVID19 -Nasal swab/Pre-Proc Stat Vital Signs Vital signs: Vital Signs - 8 hr 09/07/20 02:17 09/07/20 02:30 09/07/20 02:32 Pulse Rate 84 85 85 Respiratory Rate Blood Pressure 119/57 L Pulse Oximetry 97 97 92 09/07/20 03:00 09/07/20 03:30 09/07/20 04:00 Pulse Rate 88 92 H 87 Respiratory Rate Blood Pressure 127/57 L 128/54 L Pulse Oximetry 83 L 82 L 98 09/07/20 04:30 09/07/20 05:00 09/07/20 06:23 Pulse Rate 85 87 Respiratory Rate Blood Pressure 111/54 L Pulse Oximetry 95 97 09/07/20 06:24 09/07/20 06:25 09/07/20 07:03 Pulse Rate 89 84 72 Respiratory Rate 18 Blood Pressure 111/54 L Pulse Oximetry 94 96 <Gómez Quiros, DO - Last Filed: 09/07/20 10:17> Orders Ordered: ED Orders 09/07/20 02:14 Consult to SALES COMMUNICATIONS MANAGER - Guidance Services Coordinator Urgent Urine Drug Screen, Rapid Stat 09/07/20 02:30 Complete Blood Count AUTO DIFF Stat Comprehensive Metabolic Panel Stat Ethanol (ETOH) Stat TSH w/ Reflex to FT4 Stat 09/07/20 04:35 COVID19 -Nasal swab/Pre-Proc Stat Vital Signs Vital signs: Vital Signs - 8 hr 09/07/20 02:17 09/07/20 02:30 09/07/20 02:32 Pulse Rate 84 85 85 Respiratory Rate Blood Pressure 119/57 L Pulse Oximetry 97 97 92 09/07/20 03:00 09/07/20 03:30 09/07/20 04:00 Pulse Rate 88 92 H 87 Respiratory Rate Blood Pressure 127/57 L 128/54 L Pulse Oximetry 83 L 82 L 98 09/07/20 04:30 09/07/20 05:00 09/07/20 06:23 Pulse Rate 85 87 Respiratory Rate Blood Pressure 111/54 L Pulse Oximetry 95 97 09/07/20 06:24 09/07/20 06:25 09/07/20 07:03 Pulse Rate 89 84 72 Respiratory Rate 18 Blood Pressure 111/54 L Pulse Oximetry 94 96 MDM - Recheck/Abnormal Lab/Rx <Halie Jimenez, DO - Last Filed: 09/08/20 08:10> Lab Data Result diagrams: 09/07/20 02:30 09/07/20 02:30 Labs: Lab Results 09/07/20 09/07/20 09/07/20 Range/Units 02:29 02:30 02:30 WBC 7.7 (4.5-11.0) X10^3/uL RBC 5.08 (4.0-5.2) X10^6/uL Hgb 14.1 (12.0-16.0) g/dL Hct 43.0 (36-46) % MCV 84.6 (80-100) fL MCH 27.7 (26-34) PG MCHC 32.7 (30-36) % RDW 13.3 (11.6-14.8) % Plt Count 270 (150-400) X10^3/uL Neut % (Auto) 72.7 (50-75) % Lymph % (Auto) 14.0 L (25-40) % Roosevelt % (Auto) 11.0 (3-14) % Eos % (Auto) 1.7 L (2-4) % Baso % (Auto) 0.6 (0-2) % Neut # (Auto) 5600 (7663-8067) /uL Lymph # (Auto) 1100 (0990-0262) /uL Roosevelt # (Auto) 900 (0-900) /uL Eos # (Auto) 100 (0-450) /uL Baso # (Auto) 0 (0-100) /uL Sodium 138 (137-145) mmol/L Potassium 4.4 (3.4-5.1) mmol/L Chloride 102 (98-107) mmol/L Carbon Dioxide 30 (22-32) mmol/L BUN 13 (7-17) mg/dL Creatinine 0.61 (0.52-1.04) mg/dL Estimated GFR > 60.0 (>60) mL/min BUN/Creatinine Ratio 21.3 (6-22) Glucose 188 H (80-110) mg/dL Calcium 9.9 (8.4-10.2) mg/dL Total Bilirubin 0.3 (0.2-1.3) mg/dL AST 18 (14-36) IU/L ALT 16 (<35) IU/L Alkaline Phosphatase 103 (38-126) U/L Total Protein 7.6 (6.3-8.2) g/dL Albumin 4.0 (3.5-5.0) g/dL Globulin 3.6 (1.7-4.1) g/dL Albumin/Globulin Ratio 1.1 (1.0-2.8) TSH (0.47-4.68) uIU/mL Ethyl Alcohol < 10 ( - 10) mg/dL SARS-CoV-2 (PCR) Negative (Negative) 09/07/20 Range/Units 02:30 WBC (4.5-11.0) X10^3/uL RBC (4.0-5.2) X10^6/uL Hgb (12.0-16.0) g/dL Hct (36-46) % MCV (80-100) fL MCH (26-34) PG MCHC (30-36) % RDW (11.6-14.8) % Plt Count (150-400) X10^3/uL Neut % (Auto) (50-75) % Lymph % (Auto) (25-40) % Roosevelt % (Auto) (3-14) % Eos % (Auto) (2-4) % Baso % (Auto) (0-2) % Neut # (Auto) (0653-0719) /uL Lymph # (Auto) (4888-1523) /uL Roosevelt # (Auto) (0-900) /uL Eos # (Auto) (0-450) /uL Baso # (Auto) (0-100) /uL Sodium (137-145) mmol/L Potassium (3.4-5.1) mmol/L Chloride (98-107) mmol/L Carbon Dioxide (22-32) mmol/L BUN (7-17) mg/dL Creatinine (0.52-1.04) mg/dL Estimated GFR (>60) mL/min BUN/Creatinine Ratio (6-22) Glucose (80-110) mg/dL Calcium (8.4-10.2) mg/dL Total Bilirubin (0.2-1.3) mg/dL AST (14-36) IU/L ALT (<35) IU/L Alkaline Phosphatase (38-126) U/L Total Protein (6.3-8.2) g/dL Albumin (3.5-5.0) g/dL Globulin (1.7-4.1) g/dL Albumin/Globulin Ratio (1.0-2.8) TSH 0.72 (0.47-4.68) uIU/mL Ethyl Alcohol ( - 10) mg/dL SARS-CoV-2 (PCR) (Negative) MDM Narrative Medical decision making narrative: This is a 65-year-old female who arrives with multiple complaints but no specific concern other than covid. Patient is requesting admission to hospital. Patient has no clear medical reason for admission at this time but does have a psychiatric history and would likely benefit from evaluation by our social media developer in the morning. Patient is not actively suicidal or threatening harm herself or others. Patient signed out to Dr. Quiros while awaiting [facility] eval. Patient appropriate incompetent and if she chooses to leave she may. <Gómez Quiros, DO - Last Filed: 09/07/20 10:17> Lab Data Labs: Lab Results 09/07/20 09/07/20 09/07/20 Range/Units 02:29 02:30 02:30 WBC 7.7 (4.5-11.0) X10^3/uL RBC 5.08 (4.0-5.2) X10^6/uL Hgb 14.1 (12.0-16.0) g/dL Hct 43.0 (36-46) % MCV 84.6 (80-100) fL MCH 27.7 (26-34) PG MCHC 32.7 (30-36) % RDW 13.3 (11.6-14.8) % Plt Count 270 (150-400) X10^3/uL Neut % (Auto) 72.7 (50-75) % Lymph % (Auto) 14.0 L (25-40) % Roosevelt % (Auto) 11.0 (3-14) % Eos % (Auto) 1.7 L (2-4) % Baso % (Auto) 0.6 (0-2) % Neut # (Auto) 5600 (9657-5902) /uL Lymph # (Auto) 1100 (1416-7431) /uL Roosevelt # (Auto) 900 (0-900) /uL Eos # (Auto) 100 (0-450) /uL Baso # (Auto) 0 (0-100) /uL Sodium 138 (137-145) mmol/L Potassium 4.4 (3.4-5.1) mmol/L Chloride 102 (98-107) mmol/L Carbon Dioxide 30 (22-32) mmol/L BUN 13 (7-17) mg/dL Creatinine 0.61 (0.52-1.04) mg/dL Estimated GFR > 60.0 (>60) mL/min BUN/Creatinine Ratio 21.3 (6-22) Glucose 188 H (80-110) mg/dL Calcium 9.9 (8.4-10.2) mg/dL Total Bilirubin 0.3 (0.2-1.3) mg/dL AST 18 (14-36) IU/L ALT 16 (<35) IU/L Alkaline Phosphatase 103 (38-126) U/L Total Protein 7.6 (6.3-8.2) g/dL Albumin 4.0 (3.5-5.0) g/dL Globulin 3.6 (1.7-4.1) g/dL Albumin/Globulin Ratio 1.1 (1.0-2.8) TSH (0.47-4.68) uIU/mL Ethyl Alcohol < 10 ( - 10) mg/dL SARS-CoV-2 (PCR) Negative (Negative) 09/07/20 Range/Units 02:30 WBC (4.5-11.0) X10^3/uL RBC (4.0-5.2) X10^6/uL Hgb (12.0-16.0) g/dL Hct (36-46) % MCV (80-100) fL MCH (26-34) PG MCHC (30-36) % RDW (11.6-14.8) % Plt Count (150-400) X10^3/uL Neut % (Auto) (50-75) % Lymph % (Auto) (25-40) % Roosevelt % (Auto) (3-14) % Eos % (Auto) (2-4) % Baso % (Auto) (0-2) % Neut # (Auto) (5953-9189) /uL Lymph # (Auto) (0065-2003) /uL Roosevelt # (Auto) (0-900) /uL Eos # (Auto) (0-450) /uL Baso # (Auto) (0-100) /uL Sodium (137-145) mmol/L Potassium (3.4-5.1) mmol/L Chloride (98-107) mmol/L Carbon Dioxide (22-32) mmol/L BUN (7-17) mg/dL Creatinine (0.52-1.04) mg/dL Estimated GFR (>60) mL/min BUN/Creatinine Ratio (6-22) Glucose (80-110) mg/dL Calcium (8.4-10.2) mg/dL Total Bilirubin (0.2-1.3) mg/dL AST (14-36) IU/L ALT (<35) IU/L Alkaline Phosphatase (38-126) U/L Total Protein (6.3-8.2) g/dL Albumin (3.5-5.0) g/dL Globulin (1.7-4.1) g/dL Albumin/Globulin Ratio (1.0-2.8) TSH 0.72 (0.47-4.68) uIU/mL Ethyl Alcohol ( - 10) mg/dL SARS-CoV-2 (PCR) (Negative) MDM Narrative Medical decision making narrative: Dr Quiros: Received turned over from Dr. jimenez reviewed patient's history and physical and labs up to this point. When I arrived this morning the patient was sleeping calmly. At approximately 0930 the patient woke from sleep. Ambulated to the bathroom. Breast her teeth. Washed her face. I then went in and talked with her. She again expressed no thoughts of hurting herself. She asked us to call her family although she did not have a phone number for anyone we do not have any phone numbers for her family. The results of her lab tests were expressed to her. Informed her that social work would be here in approximately 2 hours but she stated that she was not going to be able to stay for that. The patient did walk out of the emergency department to smoke a cigarette. When she was confronted by staff she stated that she was not going to come back to the department. The patient did elope and left without discharge instructions. Discharge Plan Departure Patient Disposition: Left Against Medical Advice Clinical Impression: Delusions Prescriptions: No Action olanzapine [Zyprexa] 20 mg tablet 20 mg PO BEDTIME Qty: 10 RF: 0 metformin 500 mg tablet 500 mg PO DAILY Qty: 20 RF: 0 Invega Sustenna 234 mg/1.5 mL syringe 234 mg IM QMONTH Qty: 1.5 RF: 0 Stand Alone Forms: Against Medical Advice
[2020-09-07 02:38] LABS: Add Manual Diff / Slide Review NO; Basophils Absolute Auto 0 /uL (0-100); Basophils Percent Auto 0.6 % (0-2); Eosinophils Absolute Auto 100 /uL (0-450); Eosinophils Percent Auto 1.7 % (2-4); Hemoglobin 14.1 g/dL (12.0-16.0); Lymphocytes Absolute Auto 1100 /uL (1100-4500); Mean Corpuscular HGB Conc 32.7 % (30-36); Mean Corpuscular Hemoglobin 27.7 PG (26-34); Mean Corpuscular Volume 84.6 fL (80-100); Monocytes Absolute Auto 900 /uL (0-900); Neutrophils Absolute Auto 5600 /uL (1500-7000); Neutrophils Percent Auto 72.7 % (50-75); Platelet Count 270 X10^3/uL (150-400); Red Blood Cell Count 5.08 X10^6/uL (4.0-5.2); Red Cell Distribution Width 13.3 % (11.6-14.8); White Blood Cell Count 7.7 X10^3/uL (4.5-11.0)
[2020-09-07 02:47] LABS: Alanine Aminotransferase 16 IU/L (<35); Albumin Globulin Ratio 1.1 (1.0-2.8); Alkaline Phosphatase 103 U/L (38-126); Aspartate Aminotransferase 18 IU/L (14-36); BUN Creatinine Ratio 21.3 (6-22); Bilirubin Total 0.3 mg/dL (0.2-1.3); Blood Urea Nitrogen 13 mg/dL (7-17); Calcium 9.9 mg/dL (8.4-10.2); Carbon Dioxide 30 mmol/L (22-32); Chloride 102 mmol/L (98-107); Estimated Glomerular Filt Rate > 60.0 mL/min (>60); Ethanol (ETOH) < 10 mg/dL; Globulin 3.6 g/dL (1.7-4.1); Glucose 188 mg/dL (80-110); HEMOLYSIS < 15 (0-50); Potassium 4.4 mmol/L (3.4-5.1); Sodium 138 mmol/L (137-145); Total Protein 7.6 g/dL (6.3-8.2)
[2020-09-07 02:57] LABS: COVID19 -Nasal RAPID Negative (Negative)
[2020-09-07 03:34] LABS: TSH w/ Reflex to FT4 0.72 uIU/mL (0.47-4.68)
--- NOTE | 2020-09-07 06:08 | PC.NURSE ---
She knows we need a urine specimen but is a little reluctant to cooperate.I had to help lab draw her labs as she was also not cooperative with this.
--- NOTE | 2020-09-07 09:55 | PC.NURSE ---
Patient ambulated to the bathroom independently and was given toiletries as per her request. She stated that she wanted me to call her brother, Abhijit Renee, to come pick her up. Patient is now in her room with her toiletries and belongings waiting for Abhijit Renee to pick her up.
--- NOTE | 2020-09-07 10:13 | PC.NURSE ---
Patient walked out the emergency entrance to smoke a cigarette and stated that she did not want to come back into the hospital. She stated that she wanted to wait for her ride. Patient was not agitated or angry, she stated that she just did not want to be here anymore. I brought patient her belongings, orange juice and two turkey sandwiches. Patient said she would walk to the bus stop and wait for the bus out of town.
== END 2020-09-07 10:23 | disposition left against medical advice (07) ==
PROVIDERS: Emergency Medicine; Emergency Provider Emergency Medicine
DX: F22 Delusional disorders (principal); Z20.822 Contact with and (suspected) exposure to COVID-19
CPT/HCPCS: 36415; 80053; 80320; 84443; 85025; 87635; 99282; 99283; C9803

== ENCOUNTER 2020-09-10 07:13 | Emergency (ER) | payer MEDICARE, OTHER, SELFPAY ==
--- NOTE | 2020-09-10 07:23 | ED_ITS ---
HPI - General Adult General Chief complaint: Medical Clearance Stated complaint: Dizzy, lightheaded Time Seen by Provider: 09/10/20 07:20 Source: patient and EMS Mode of arrival: EMS History of Present Illness HPI narrative: Patient brought here by EMS from [facility] parking lot for complaints of dizziness and lightheaded. On speaking with patient, she states she is actually here because she is tired. Patient states she is house list. S he lost her apartment in [place]. Since then she has been going from hospital to hospital to rest. Reviewed records she presents with multiple complaints on those visits. She states she was at [facility] in [place] on , 4 days ago and spent the night there and discharged the following day/Friday. She states she had no where to go and she was able to get a ride from a stranger out here to [place]. Last night she has slept on the bench on the parking lot of [facility] grocery store. This morning she called EMS to bring her here. No recent illness otherwise. No fever chills cough cold congestion. No chest pain. No dyspnea. Blood sugar done here 223. She states she needs refill of her metformin 500 mg daily. No SI no HI. No hallucinations. She states she is tired. No cough cold congestion fever chills nausea vomiting or diarrhea. No urinary complaints Related Data Previous Rx's Medication Instructions Recorded olanzapine [Zyprexa] 20 mg PO BEDTIME #10 tab 06/16/20 metformin 500 mg PO DAILY #20 tab 09/03/20 paliperidone palmitate [Invega 234 mg IM QMONTH #1.5 ml 09/03/20 Sustenna] metformin 500 mg PO DAILY #20 tab 09/10/20 metformin 500 mg PO DAILY #20 tab 09/10/20 Allergies Allergy/AdvReac Type Severity Reaction Status Date / Time alendronate sodium Allergy Verified 09/01/20 20:53 Penicillins Allergy Verified 09/01/20 20:53 Review of Systems Review of Systems Narrative: GENERAL: Denies chills, complains fatigue, denies fever, sweats. HEENT: Denies sinus pain, ear pain, sore throat RESPIRATORY: Denies dyspnea, cough CARDIOVASCULAR: Denies chest pain, palpitations GASTROINTESTINAL: Denies nausea, vomiting, abdominal pain : Denies dysuria, frequency, hematuria MUSCULOSKELETAL: denies muscle or bony pain SKIN: Denies rash, skin lesions NEUROLOGIC: Denies weakness, numbness ROS Unobtainable: All systems reviewed & are unremarkable except as noted in HPI and below Patient History Medical History Co-occurrence of multiple psychiatric disorders Medical history unknown Social History Smoking Status: Current every day smoker Smoking Status: Current every day smoker tobacco type: cigarettes alcohol intake frequency: a few times a month Substance Use Type: does not use Exam Narrative Exam Narrative: GENERAL: in no distress, not toxic not dyspneic, patient appears very tired HEAD: Normocephalic. EYES: Pupils equal round No scleral icterus. No injection no discharge ENT: Mucous membranes moist. NECK: Trachea midline. CARDIOVASCULAR: Regular rate and rhythm without murmurs RESPIRATORY: Clear to auscultation. Breath sounds equal bilaterally. No wheezes, rales, or rhonchi. GASTROINTESTINAL: Abdomen soft, non-tender EXTREMITIES: No gross deformities. BACK: No flank tenderness. NEURO: AOx4. SKIN: Warm and dry PSYCH: Not anxious, is cooperative Initial Vital Signs Initial Vital Signs: Vital Signs Temperature 97.9 F 09/10/20 07:24 Pulse Rate 96 H 09/10/20 07:24 Respiratory Rate 18 09/10/20 07:24 Blood Pressure 120/54 L 09/10/20 07:24 Pulse Oximetry 100 09/10/20 07:24 Course Course Course Narrative: No new issues during course of stay. Orders Ordered: Discontinued Medications Metformin HCl (Metformin Hcl 500 Mg Tablet) 500 mg PO NOW ONE Stop: 09/10/20 07:25 Last Admin: 09/10/20 07:42 Dose: 500 mg Documented by: PRANAY Reevaluation(s) Reevaluation #1: Patient has been sleeping soundly during course of stay. Awoke patient. She states she feels much better. Or rested. She did eat here. Requesting coffee before she leaves. Time: 10:54 Vital Signs Vital signs: Vital Signs - 8 hr 09/10/20 07:24 09/10/20 11:00 Temperature 97.9 F Pulse Rate 96 H 80 Respiratory Rate 18 18 Blood Pressure 120/54 L 120/71 Pulse Oximetry 100 98 Medical Decision Making Differential Diagnosis Differential Diagnosis: Fatigue/medication refill Medical Records Medical records reviewed: Yes I reviewed the patient's medical records. Lab Data Lab results reviewed: Yes I reviewed the patient's lab results. Labs: Point of Care Testing Glucose POC 223 Point of care testing: Point of Care Testing Glucose POC 223 MDM Narrative Medical decision making narrative: Appropriate for discharge. Patient states on arrival she is here to get some rest. She had no where to go to get rest. Refill for metformin given to patient. Outpatient resources as well provided for patient. No other laboratory studies or imaging or EKG indicated. Discharge Plan Departure Patient Disposition: Home Clinical Impression: Medication refill Fatigue Qualifiers: Fatigue type: unspecified Qualified Code(s): R53.83 - Other fatigue Instructions: DI for Fatigue, How to Refill a Prescription Activity Restrictions/Additional Instructions: Keep well hydrated. Call provided clinic/resource to attain new family doctor. Continue home medications. Return if worse or any questions or concerns. Prescriptions: New metformin 500 mg tablet extended release 24 hr 500 mg PO DAILY Qty: 20 RF: 0 metformin 500 mg tablet 500 mg PO DAILY Qty: 20 RF: 0 No Action olanzapine [Zyprexa] 20 mg tablet 20 mg PO BEDTIME Qty: 10 RF: 0 metformin 500 mg tablet 500 mg PO DAILY Qty: 20 RF: 0 Invega Sustenna 234 mg/1.5 mL syringe 234 mg IM QMONTH Qty: 1.5 RF: 0 Referrals: [facility] [Outside]
[2020-09-10 07:24] VITALS: BP 120/54; PULSE 96; RESP 18; TEMP 36.6; O2SAT 100; BMI 36.8
--- NOTE | 2020-09-10 07:36 | PC.NURSE ---
transient slept outside of [facility] on bench, here for fatigue
[2020-09-10] MEDS: METFORMIN HCL 500 MG TABLET PO (07:42)
[2020-09-10 11:00] VITALS: BP 120/71; PULSE 80; RESP 18; O2SAT 98
== END 2020-09-10 11:00 | disposition home or self-care (01) ==
PROVIDERS: Emergency Provider Emergency Medicine
DX: Z76.0 Encounter for issue of repeat prescription (principal); R53.83 Other fatigue
CPT/HCPCS: 82962; 99283

== ENCOUNTER 2020-09-11 01:58 | Emergency (ER) | payer MEDICARE, OTHER, SELFPAY ==
--- NOTE | 2020-09-11 01:53 | PC.NURSE ---
Pt arrived at the front registration desk with Mindi Null who gave her a ride from [place]. On arrival, pt declined to come to a room and instead said, I need a cigarette and walked to the [facility] where she sat on a bench.
== END 2020-09-11 02:00 | disposition left against medical advice (07) ==
LOC: ED 02:10
PROVIDERS: Emergency Provider Emergency Medicine

== ENCOUNTER 2020-09-11 03:13 | Emergency (ER) | payer MEDICARE, OTHER, SELFPAY ==
[2020-09-11 03:25] VITALS: BP 120/67; PULSE 97; RESP 20; TEMP 36.2; O2SAT 99; BMI 36.8
--- NOTE | 2020-09-11 03:38 | PC.NURSE ---
Pt reports painful, itchy rash to groin. Appears yeasty.
[2020-09-11] MEDS: IBUPROFEN 400 MG TABLET 800 MG PO (04:01)
[2020-09-11] MEDS: NYSTATIN CREAM 30 GM 1 APPLIC TOP (04:02)
--- NOTE | 2020-09-11 04:19 | ED.SKABFB ---
HPI - Skin/Abscess/Foreign Bdy <Brenda Vega, DO - Last Filed: 09/11/20 18:05> General Chief complaint: Skin/Abscess/Foreign Body Stated complaint: Leg pain Time Seen by Provider: 09/11/20 03:16 Source: patient Mode of arrival: Ambulatory History of Present Illness HPI narrative: Patient is a 65-year-old female with history of schizophrenia, delusional disorder, systemic lupus hypertension, hyperlipidemia diabetes, mental illness, presenting for the 2nd time in 24 hours. She has had multiple ER visits 10 ER visits in 10 days. She actually was dropped off to the emergency department at least to the lobby he by police a few hours ago. Patient did not want to check in at that time. She walked to [facility] where police were called along with EMS and she was brought here for leg pain. She walked from the ambulance [place] to her ER room. She is complaining of knee pain, she has rash in her groin she is unable to afford her medications she is homeless. She also has frequent complaints of bugs she is quite sure that she has seen a spider jump on her skin. She surprisingly has yet to be seen by ED group social worker. She was seen at [facility] 09/09/2020 after being found a lingering around [place] saying that she felt her body was shutting down and that aunt's were crawling all over her. She was also worried about being , her was negative she denies suicidal or homicidal ideations. She is quite concerned about the rash in her inguinal area. During questioning she requires frequent redirection. She denies homicidal or suicidal ideations MD complaint: rash Related Data Previous Rx's Medication Instructions Recorded olanzapine [Zyprexa] 20 mg PO BEDTIME #10 tab 06/16/20 metformin 500 mg PO DAILY #20 tab 09/03/20 paliperidone palmitate [Invega 234 mg IM QMONTH #1.5 ml 09/03/20 Sustenna] metformin 500 mg PO DAILY #20 tab 09/10/20 metformin 500 mg PO DAILY #20 tab 09/10/20 sulfamethoxazole-trimethoprim 1 tab PO BID #6 tab 09/11/20 [Bactrim DS] Allergies Allergy/AdvReac Type Severity Reaction Status Date / Time alendronate sodium Allergy Verified 09/01/20 20:53 Penicillins Allergy Verified 09/01/20 20:53 Review of Systems <Brenda Vega DO - Last Filed: 09/11/20 18:05> Review of Systems ROS Unobtainable: All systems reviewed & are unremarkable except as noted in HPI and below Eyes Eyes: Denies change in vision, Denies eye discharge, Denies irritation and Denies loss of vision Cardiovascular Cardiovascular: Denies dyspnea and Denies dyspnea on exertion Respiratory Respiratory: Denies cough, Denies dyspnea, Denies dyspnea on exertion and Denies wheezing Gastrointestinal Gastrointestinal: Denies abdominal pain, Denies change in bowel habits, Denies diarrhea, Denies nausea and Denies vomiting Musculoskeletal Musculoskeletal: Reports arthralgias (knees) Integumentary/Breasts Skin/Breast: Reports as per HPI Neurologic Neurologic: Denies loss of vision Allergic/Immunologic Allergic/Immunologic: Denies wheezing Patient History <Brenda Vega DO - Last Filed: 09/11/20 18:05> Medical History Co-occurrence of multiple psychiatric disorders Medical history unknown Social History Smoking Status: Current every day smoker Smoking Status: Current every day smoker tobacco type: cigarettes alcohol intake frequency: a few times a month Substance Use Type: does not use Exam <Brenda Vega DO - Last Filed: 09/11/20 18:05> Initial Vital Signs Initial Vital Signs: Vital Signs Temperature 97.2 F L 09/11/20 03:25 Pulse Rate 97 H 09/11/20 03:25 Respiratory Rate 20 09/11/20 03:25 Blood Pressure 120/67 09/11/20 03:25 Pulse Oximetry 99 09/11/20 03:25 GENERAL: Well-appearing, well-nourished and in no acute distress. CARDIOVASCULAR: peripheral pulses in tact, cap refill <2 sec RESPIRATORY: No respiratory distress, speaks in full sentences without difficulty EXTREMITIES: Normal range of motion, no clubbing or edema. Neurovascularly intact NEUROLOGICAL: Cranial nerves II through XII grossly intact. Normal gait and speech. SKIN: Jinny rash noted in fold of skin in inguinal groin area Psych Appearance: disheveled Mental Status: mental status grossly normal Speech and Movement: speech and movement normal Mood: irritable mood Affect: labile affect Attitude: cooperative Thought Process: confabulating Thought Content: delusions Judgment: fair <Halie Casey DO - Last Filed: 09/11/20 19:19> Initial Vital Signs Initial Vital Signs: Vital Signs Temperature 97.2 F L 09/11/20 03:25 Pulse Rate 97 H 09/11/20 03:25 Respiratory Rate 20 09/11/20 03:25 Blood Pressure 120/67 09/11/20 03:25 Pulse Oximetry 99 09/11/20 03:25 Course <Brenda Vega DO - Last Filed: 09/11/20 18:05> Orders Ordered: Discontinued Medications Ibuprofen (Ibuprofen 400 Mg Tablet) 800 mg PO NOW ONE Stop: 09/11/20 03:41 Last Admin: 09/11/20 04:01 Dose: 800 mg Documented by: BRETT Nystatin (Nystatin Ointment 15 Applic/Tube Oint...G.) 1 applic TOP NOW ONE Stop: 09/11/20 03:41 Last Admin: 09/11/20 04:10 Dose: Not Given Documented by: BRETT Nystatin (Nystatin Cream 30 Gm) 1 applic TOP NOW ONE Stop: 09/11/20 03:41 Last Admin: 09/11/20 04:02 Dose: 1 applic Documented by: BRETT Nystatin (Nystatin Cream 30 Gm) 1 applic TOP NOW ONE Stop: 09/11/20 03:41 Last Admin: 09/11/20 04:09 Dose: Not Given Documented by: BRETT Vital Signs Vital signs: Vital Signs - 8 hr 09/11/20 14:54 Pulse Rate 80 Respiratory Rate 18 Blood Pressure 100/57 L <Halie Casey DO - Last Filed: 09/11/20 19:19> Orders Ordered: Discontinued Medications Ibuprofen (Ibuprofen 400 Mg Tablet) 800 mg PO NOW ONE Stop: 09/11/20 03:41 Last Admin: 09/11/20 04:01 Dose: 800 mg Documented by: BRETT Nystatin (Nystatin Ointment 15 Applic/Tube Oint...G.) 1 applic TOP NOW ONE Stop: 09/11/20 03:41 Last Admin: 09/11/20 04:10 Dose: Not Given Documented by: SOUMYAALLAG Nystatin (Nystatin Cream 30 Gm) 1 applic TOP NOW ONE Stop: 09/11/20 03:41 Last Admin: 09/11/20 04:02 Dose: 1 applic Documented by: BRETT Nystatin (Nystatin Cream 30 Gm) 1 applic TOP NOW ONE Stop: 09/11/20 03:41 Last Admin: 09/11/20 04:09 Dose: Not Given Documented by: BRETT Vital Signs Vital signs: Vital Signs - 8 hr 09/11/20 14:54 Pulse Rate 80 Respiratory Rate 18 Blood Pressure 100/57 L MDM - Skin/Abscess/Foreign Bdy <Brenda Vega DO - Last Filed: 09/11/20 18:05> Lab Data Labs: Lab Results 09/11/20 09/11/20 Range/Units 04:50 04:50 Urine RBC 0-1/hpf (0-5/HPF) Urine WBC 0-1/hpf (0-5/HPF) Ur Squamous Epith Cells 1-5 /hpf (0-5/HPF) Amorphous Sediment 2+ Urine Bacteria Few (2-10) H (None) Urine Yeast 0-1/hpf (None) Ur Culture Indicated? Cult not indicated U Opiates 300ng/mL cut Negative (Negative) Ur Oxycodone Screen Negative (Negative) Urine Methadone Screen Negative (Negative) Ur Barbiturates Screen Negative (Negative) U Tricyclic Antidepress Negative (Negative) Ur Phencyclidine Scrn Negative (Negative) Ur Amphetamines Screen Negative (Negative) U Methamphetamines Scrn Negative (Negative) Ur MDMA Scrn (Ecstasy) Negative (Negative) U Benzodiazepines Scrn Negative (Negative) Urine Cocaine Screen Negative (Negative) U Marijuana (THC) Screen Negative (Negative) Point of Care Testing Glucose POC 170 Urine Dip Bedside Urine Glucose Negative Bedside Urine Bilirubin - Negative Bedside Urine Ketone - Negative Urine Specific [place] 1.020 Bedside Urine Occult Blood - Negative Bedside Urine pH 6.5 Bedside Urine Protein - Negative Bedside Urine Urobilinogen - Negative Bedside Urine Nitrite - Negative Bedside Urine Leukocytes +/- 15 Esterase MDM Narrative Medical decision making narrative: Records from [facility] from 09/08/2020 have been reviewed. She had a respiratory panel done and a UA along with a test which she demanded all along with a drug screen which was positive for THC only. She has an obvious Jinny infection between her folds she has been given nystatin ointment. Patient urinated in a suction canister is stating that she could not walk to the restroom. I have explained her that that is completely inappropriate and that she can walk to the restroom and we are happy to help her. She continues to call out to staff with multiple requests and multiple complaints every time someone enters the room. She had blood work done at this hospital on 09/07/2020 which was essentially normal. She had knee x-rays and head CT at that time as well. She is quite manipulative, talking in circles borderline personality traits. Patient has had multiple emergency department visits over last 10 days to multiple emergency departments. She seems to be unstable she has poor insight. She is not have to her medications or funds to get them. Patient signed out to Dr. Casey for further management awaiting social Work blood work <Halie Casey, DO - Last Filed: 09/11/20 19:19> Lab Data Attestation: I reviewed the patient's lab results. Labs: Lab Results 09/11/20 09/11/20 Range/Units 04:50 04:50 Urine RBC 0-1/hpf (0-5/HPF) Urine WBC 0-1/hpf (0-5/HPF) Ur Squamous Epith Cells 1-5 /hpf (0-5/HPF) Amorphous Sediment 2+ Urine Bacteria Few (2-10) H (None) Urine Yeast 0-1/hpf (None) Ur Culture Indicated? Cult not indicated U Opiates 300ng/mL cut Negative (Negative) Ur Oxycodone Screen Negative (Negative) Urine Methadone Screen Negative (Negative) Ur Barbiturates Screen Negative (Negative) U Tricyclic Antidepress Negative (Negative) Ur Phencyclidine Scrn Negative (Negative) Ur Amphetamines Screen Negative (Negative) U Methamphetamines Scrn Negative (Negative) Ur MDMA Scrn (Ecstasy) Negative (Negative) U Benzodiazepines Scrn Negative (Negative) Urine Cocaine Screen Negative (Negative) U Marijuana (THC) Screen Negative (Negative) Point of Care Testing Glucose POC 170 Urine Dip Bedside Urine Glucose Negative Bedside Urine Bilirubin - Negative Bedside Urine Ketone - Negative Urine Specific [place] 1.020 Bedside Urine Occult Blood - Negative Bedside Urine pH 6.5 Bedside Urine Protein - Negative Bedside Urine Urobilinogen - Negative Bedside Urine Nitrite - Negative Bedside Urine Leukocytes +/- 15 Esterase MDM Narrative Medical decision making narrative: 65-year-old female with known psychiatric illness. Patient has been here multiple times recently. She does not appear to be gravely disabled at this time and is not having any thoughts of harming herself or others. She does appear to need help. can worker did evaluate her services were offered. They also try to get her a bed someone of the local hotels but were denied by [facility]. After repeat evaluation patient's may concern is was a blister on her foot. Discharge Plan Departure Patient Disposition: Home Clinical Impression: Co-occurrence of multiple psychiatric disorders Blister of foot Qualifiers: Encounter type: initial encounter Activity Restrictions/Additional Instructions: Your urine culture is pending today. You have been given a prescription for Keflex for possible urine infection. Included below is also the call number for the crisis center. There is also a hotline for self-referral for psychiatric treatment. If you feel you need to go to [facility]. Call had of time ([phone]) to inquire about an available bed. If there are no beds called daily and 9 AM and 9 PM to check on bed availability. If you're feeling suicidal or having suicidal thoughts, contact the suicide hotline (also number for couseling and self referral) . Return if you feel your danger to yourself or others, new or concerning or worsening symptoms such as fever, shaking chills worsening pain persistent vomiting. Prescriptions: New sulfamethoxazole-trimethoprim [Bactrim DS] 800-160 mg tablet 1 tab PO BID Qty: 6 RF: 0 No Action olanzapine [Zyprexa] 20 mg tablet 20 mg PO BEDTIME Qty: 10 RF: 0 metformin 500 mg tablet extended release 24 hr 500 mg PO DAILY Qty: 20 RF: 0 metformin 500 mg tablet 500 mg PO DAILY Qty: 20 RF: 0 metformin 500 mg tablet 500 mg PO DAILY Qty: 20 RF: 0 Invega Sustenna 234 mg/1.5 mL syringe 234 mg IM QMONTH Qty: 1.5 RF: 0
[2020-09-11 05:04] LABS: RBC Urine 0-1/HPF (0-5/HPF); WBC Urine 0-1/HPF (0-5/HPF)
[2020-09-11 05:05] LABS: Amorphous Sediment Urine 2+; Bacteria Urine Few (2-10); Culture Indicated Urine Cult Not Indicated; Squamous Epithelial Cell Urine 1-5 /HPF (0-5/HPF); Ur Creatinine Normal (Normal); Ur Specific Gravity Normal (Normal); Urine Tetrahydrocannabinol Negative (Negative); Urine pH Normal (Normal)
[2020-09-11 05:06] LABS: UR Morphine/Opiate cutoff 300 Negative (Negative); Urine Amphetamines Negative (Negative); Urine Barbiturates Negative (Negative); Urine Benzodiazepines Negative (Negative); Urine Cocaine Negative (Negative); Urine MDMA Negative (Negative); Urine Methadone Negative (Negative); Urine Methamphetamines Negative (Negative); Urine Oxycodone Negative (Negative); Urine Phencyclidine Negative (Negative); Urine Tricyclic Antidepressant Negative (Negative)
--- NOTE | 2020-09-11 06:54 | PC.NURSE ---
Pt voided in suction canister after refusing to walk to the bathroom. Pt frequently yelling out about things like bugs crawling out of her. She is frequently requesting nursing staff in the room for obscure reasons such as her packaged cookies having too much air in the packaging and thinking its been tampered with.
--- NOTE | 2020-09-11 07:16 | PC.NURSE ---
Pt refused blood draw. Dr Casey made aware.
--- NOTE | 2020-09-11 11:48 | PC.NURSE ---
Patient yelling out can someone bring me some cookies, chips and juice Patient has cookies laying on bed, redirected patient to food these are spoiled bring me something that isn't spoiled Showed patient expiration date of 01/2021. Patient refuses to eat them bring me some new ones and some juice and what are you going to do about my butt, something is coming out of my butt it feels awful patient rolled over and spread her butt what are you going to do about that. Reminded patient she is awaiting evaluation with [facility]. Patient provided snack.
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
--- NOTE | 2020-09-11 13:59 | CM.SWNOTE ---
Addendum entered by Pamella Alvarenga 09/11/20 14:57: Phone number for patient's son is incorrect, there is no known current phone number for patient's son. Plan: patient d/c to the community. Addendum entered by Pamella Alvarenga 09/11/20 14:06: PROJECT SCIENTIST note [facility] calls and reports that they are not able to serve patient today for motel voucher but patient can call [place] tomorrow at (Ph. # [phone], ext [phone]) ABBY Deras Original Note: PROJECT SCIENTIST Note PROJECT SCIENTIST calls [facility] motel voucher program and leaves requesting return call. PROJECT SCIENTIST calls [facility] and leave requesting return call. PROJECT SCIENTIST calls son Adriano Pena (Ph. # [phone]) leaves requesting return call. PROJECT SCIENTIST receives call from [facility] and they are reviewing patient for motel voucher to see if patient qualifies. ABBY Deras
[2020-09-11 14:54] VITALS: BP 100/57; PULSE 80; RESP 18
== END 2020-09-11 14:54 | disposition home or self-care (01) ==
PROVIDERS: Emergency Medicine; Emergency Provider Emergency Medicine
DX: S90.829A Blister (nonthermal), unspecified foot, initial encounter (principal); F99 Mental disorder, not otherwise specified
CPT/HCPCS: 80305; 81003; 81015; 82962; 99283

== ENCOUNTER 2020-09-11 23:31 | Emergency (ER) | payer MEDICARE, OTHER, SELFPAY | END 2020-09-11 23:55 | disposition left against medical advice (07) | LOC: ED 09-12 00:07 | PROVIDERS: Emergency Provider Emergency Medicine | CPT/HCPCS: 99281 ==

== ENCOUNTER 2020-12-10 00:38 | Emergency (ER) | payer MEDICARE, OTHER, SELFPAY ==
[2020-12-10] VITALS (9 sets, daily range): BP systolic 137–143; BP diastolic 63–68; PULSE 81–110; RESP 16–22; TEMP 36.9–37.2; O2SAT 94–98; BMI 36.8
--- NOTE | 2020-12-10 01:14 | DI.RAD.S_ITS ---
PROCEDURE: XR CHEST 1V INDICATIONS: fall, trauma, preop TECHNIQUE: One view of the chest was acquired. COMPARISON: [facility], CR, XR CHEST 1 VIEW, 08/30/2020, 12:06. FINDINGS: Surgical changes and devices: None. Lungs and pleura: Lungs are clear. No pleural effusions or pneumothorax. Mediastinum: Mediastinal contours appear normal. Heart size is normal. Bones and chest wall: No suspicious bony lesions. Overlying soft tissues appear unremarkable. IMPRESSION: No acute cardiopulmonary disease process. Dictated by: Jess Trujillo MD, PhD on 12/10/2020 at 6:52 Approved by: Jess Trujillo MD, PhD on 12/10/2020 at 6:53
--- NOTE | 2020-12-10 01:26 | PC.NURSE ---
Pt with red, swollen rash to bilat arms and hands with few blisters. Pt reports skin changes all over. Pt reports she's had a lot of sun exposure and has lupus. Needs refill of meds.
--- NOTE | 2020-12-10 01:32 | ED.SKABFB ---
HPI - Skin/Abscess/Foreign Bdy General Chief complaint: Skin/Abscess/Foreign Body Stated complaint: poss downing rt arm, bugs are crawling on her uti Time Seen by Provider: 12/10/20 00:41 Source: patient Mode of arrival: Ambulatory Limitations: no limitations History of Present Illness HPI narrative: 65F smoker with history of HTN, schizophrenia, NIDDM, cutaneous lupus and delusional disorder returns to the emergency department this evening for evaluation of painful rash on all sun-exposed portions of her body. She states that for about the past 6 weeks she has had pain, swelling, warmth of her skin and states this is consistent with prior lupus eruptions after being exposed to sun. She has not had access to her Plaquenil Related Data Previous Rx's Medication Instructions Recorded olanzapine 20 mg tablet (Zyprexa) 20 mg PO BEDTIME #10 tab 06/16/20 metformin 500 mg tablet 500 mg PO DAILY #20 tab 09/03/20 paliperidone palmitate 234 mg/1.5 234 mg IM QMONTH #1.5 ml 09/03/20 mL intramuscular syringe (Invega Sustenna) metformin 500 mg tablet 500 mg PO DAILY #20 tab 09/10/20 metformin 500 mg tablet,extended 500 mg PO DAILY #20 tab 09/10/20 release 24 hr sulfamethoxazole 800 1 tab PO BID #6 tab 09/11/20 mg-trimethoprim 160 mg tablet (Bactrim DS) hydrocortisone 1 % topical ointment 1 applic TOPICAL BID-TID PRN 12/10/20 #28.35 g hydroxychloroquine 200 mg tablet 200 mg PO DAILY #20 tab 12/10/20 Allergies Allergy/AdvReac Type Severity Reaction Status Date / Time alendronate sodium Allergy Verified 09/01/20 20:53 Penicillins Allergy Verified 09/01/20 20:53 Review of Systems Review of Systems Narrative: GENERAL: See HPI HEENT: Denies sinus pain, ear pain, sore throat, difficulty swallowing, dizziness. RESPIRATORY: Denies dyspnea, cough, wheezing, hemoptysis, sputum. CARDIOVASCULAR: Denies chest pain, palpitations, orthopnea, edema, GASTROINTESTINAL: Denies nausea, vomiting, abdominal pain, diarrhea, constipation, melena. : Denies dysuria, frequency, incontinence, hematuria, urinary retention. MUSCULOSKELETAL: denies weakness, joint pain, or bony pain SKIN: See HPI NEUROLOGIC: Denies weakness, headache, numbness, change in speech, confusion, seizures, incoordination. PSYCHIATRIC: No concerning psychosocial issues. 12 point review of systems is negative except for those stated above Patient History Medical History Co-occurrence of multiple psychiatric disorders Medical history unknown Social History Smoking Status: Current every day smoker Smoking Status: Current every day smoker tobacco type: cigarettes alcohol intake frequency: a few times a month Substance Use Type: does not use Exam Narrative Exam Narrative: GENERAL: [65] year old patient appears stated age. Well-developed patient, in mild distress. HEAD: Atraumatic. Normocephalic. EYES: Pupils equal round and reactive. Extraocular motions intact. No scleral icterus. No injection or drainage. ENT: Nose without bleeding, purulent drainage. Throat without erythema, tonsillar hypertrophy or exudate. Airway patent. NECK: Trachea midline. Non tender CARDIOVASCULAR: Regular rate and rhythm without murmurs, gallops, or rubs. RESPIRATORY: Clear to auscultation. Breath sounds equal bilaterally. No wheezes, rales, or rhonchi. GASTROINTESTINAL: Abdomen soft, non-tender, nondistended. EXTREMITIES: No edema or joint tenderness. BACK: Nontender without deformity or crepitance. No flank tenderness. NEURO: AOx3. SKIN: Exposed areas of skin, primarily on the dorsal surface of arms from the elbows to metacarpophalangeal joints as well as the bridge of her nose and forehead are erythematous, slightly edematous with scaling edges and warmth, there is a 2 cm intact bulla on the dorsum of her right wrist. Initial Vital Signs Initial Vital Signs: Vital Signs Temperature 99.0 F 12/10/20 01:13 Pulse Rate 110 H 12/10/20 01:13 Respiratory Rate 22 12/10/20 01:13 Blood Pressure 143/68 H 12/10/20 01:13 Pulse Oximetry 98 12/10/20 01:13 Course Orders Ordered: ED Orders 12/10/20 01:14 XR chest 1V Stat EKG-12 Lead Stat 12/10/20 01:30 C-Reactive Protein Quant Stat Complete Blood Count AUTO DIFF Stat Comprehensive Metabolic Panel Stat Erythrocyte Sedimentation Rate Stat Magnesium Stat NT-proBNP (BNP-Adult 18+) Stat Prothrombin Time INR Stat Troponin & CK Cardiac Panel Stat 12/10/20 01:32 COVID19 - ADMIT ([employer] swab/PCR) Stat 12/10/20 01:45 Blood Culture Stat Discontinued Medications Sodium Chloride (Normal Saline 0.9%) 1,000 mls @ 1,000 mls/hr IV BOLUS ONE Stop: 12/10/20 02:12 Last Infusion: 12/10/20 02:52 Dose: 0 mls/hr Documented by: Admin: 12/10/20 01:49 Dose: 1,000 mls/hr Documented by: EVELYN Vital Signs Vital signs: Vital Signs - 8 hr 12/10/20 01:13 12/10/20 02:38 Temperature 99.0 F Pulse Rate 110 H 83 Respiratory Rate 22 16 Blood Pressure 143/68 H Pulse Oximetry 98 98 MDM - Skin/Abscess/Foreign Bdy Lab Data Result diagrams: 12/10/20 01:30 12/10/20 01:30 Labs: Lab Results 12/10/20 12/10/20 12/10/20 Range/Units 01:30 01:30 01:30 WBC 6.7 (4.5-11.0) X10^3/uL RBC 4.44 (4.0-5.2) X10^6/uL Hgb 12.6 (12.0-16.0) g/dL Hct 38.1 (36-46) % MCV 86.0 (80-100) fL MCH 28.5 (26-34) PG MCHC 33.1 (30-36) % RDW 13.8 (11.6-14.8) % Plt Count 301 (150-400) X10^3/uL Neut % (Auto) 78.1 H (50-75) % Lymph % (Auto) 10.8 L (25-40) % [place] % (Auto) 7.9 (3-14) % Eos % (Auto) 2.8 (2-4) % Baso % (Auto) 0.4 (0-2) % Neut # (Auto) 5300 (7702-7328) /uL Lymph # (Auto) 700 L (2918-6503) /uL [place] # (Auto) 500 (0-900) /uL Eos # (Auto) 200 (0-450) /uL Baso # (Auto) 0 (0-100) /uL ESR 24 H (0-20) MM/HR PT 11.2 (10.1-12.7) SECONDS INR 1.0 (0.9-1.3) Sodium 137 (137-145) mmol/L Potassium 3.9 (3.4-5.1) mmol/L Chloride 104 (98-107) mmol/L Carbon Dioxide 26 (22-32) mmol/L BUN 8 (7-17) mg/dL Creatinine 0.63 (0.52-1.04) mg/dL Estimated GFR > 60.0 (>60) mL/min BUN/Creatinine Ratio 12.7 (6-22) Glucose 178 H (80-110) mg/dL Calcium 9.5 (8.4-10.2) mg/dL Magnesium 1.9 (1.6-2.3) mg/dL Total Bilirubin 0.3 (0.2-1.3) mg/dL AST 18 (14-36) IU/L ALT 14 (<35) IU/L Alkaline Phosphatase 83 (38-126) U/L Total Creatine Kinase 43 (30-135) U/L CK-MB (CK-2) TNP CK-MB (CK-2) Rel Index TNP Troponin I < 0.012 (0.01-0.034) ng/mL C-Reactive Protein 1.3 H (<1.0) mg/dL NT-Pro-B Natriuret Pep 56 (<125) pg/mL Total Protein 7.4 (6.3-8.2) g/dL Albumin 4.0 (3.5-5.0) g/dL Globulin 3.4 (1.7-4.1) g/dL Albumin/Globulin Ratio 1.2 (1.0-2.8) SARS-CoV-2 (PCR) (Negative) 12/10/20 Range/Units 01:32 WBC (4.5-11.0) X10^3/uL RBC (4.0-5.2) X10^6/uL Hgb (12.0-16.0) g/dL Hct (36-46) % MCV (80-100) fL MCH (26-34) PG MCHC (30-36) % RDW (11.6-14.8) % Plt Count (150-400) X10^3/uL Neut % (Auto) (50-75) % Lymph % (Auto) (25-40) % [place] % (Auto) (3-14) % Eos % (Auto) (2-4) % Baso % (Auto) (0-2) % Neut # (Auto) (1196-1425) /uL Lymph # (Auto) (4441-3093) /uL [place] # (Auto) (0-900) /uL Eos # (Auto) (0-450) /uL Baso # (Auto) (0-100) /uL ESR (0-20) MM/HR PT (10.1-12.7) SECONDS INR (0.9-1.3) Sodium (137-145) mmol/L Potassium (3.4-5.1) mmol/L Chloride (98-107) mmol/L Carbon Dioxide (22-32) mmol/L BUN (7-17) mg/dL Creatinine (0.52-1.04) mg/dL Estimated GFR (>60) mL/min BUN/Creatinine Ratio (6-22) Glucose (80-110) mg/dL Calcium (8.4-10.2) mg/dL Magnesium (1.6-2.3) mg/dL Total Bilirubin (0.2-1.3) mg/dL AST (14-36) IU/L ALT (<35) IU/L Alkaline Phosphatase (38-126) U/L Total Creatine Kinase (30-135) U/L CK-MB (CK-2) CK-MB (CK-2) Rel Index Troponin I (0.01-0.034) ng/mL C-Reactive Protein (<1.0) mg/dL NT-Pro-B Natriuret Pep (<125) pg/mL Total Protein (6.3-8.2) g/dL Albumin (3.5-5.0) g/dL Globulin (1.7-4.1) g/dL Albumin/Globulin Ratio (1.0-2.8) SARS-CoV-2 (PCR) Negative (Negative) MDM Narrative Medical decision making narrative: Multiple etiologies for patient's symptoms considered including: [cutaneous lupus vs. sunburn vs. other] Patient's symptoms improved over duration of stay with above-stated therapies. Findings and discharge diagnosis discussed with patient/family followed by verbalization of understanding Return precautions discussed with patient/family whom verbalize understanding. Discharge Plan Departure Patient Disposition: Home Clinical Impression: Acute cutaneous lupus erythematosus Instructions: DI for Systemic Lupus Erythematosus Activity Restrictions/Additional Instructions: *You have been diagnosed with [cutaneous lupus ] *What to do: *Please continue to take your regular medications as directed. [ ] New medication prescriptions sent to your pharmacy: [ ] [x ] New medication written as a paper prescription [ ] No new medications given *Please follow up with your primary care provider in 2-3 days, call for an appointment. Let them know you were seen in the Emergency Department and that we ask that you be seen in follow up. We will electronically transmit a record of today's note if your PCP is in our system *If you do not have a primary care provider please contact the [facility] Resource line at [phone]. They will ask some questions about your medical history and help get you set up with a doctor in the community. *Return to Emergency Department if you should have any new, worsening or concerning symptoms, such as [fever greater than 101 F, shaking chills, worsening pain, persistent vomiting or other bothersome symptoms] Prescriptions: New hydroxychloroquine 200 mg tablet 200 mg PO DAILY Qty: 20 RF: 0 hydrocortisone 1 % ointment 1 applic topical BID-TID PRN (Reason: skin irritation) Qty: 28.35 RF: 0 No Action olanzapine [Zyprexa] 20 mg tablet 20 mg PO BEDTIME Qty: 10 RF: 0 metformin 500 mg tablet extended release 24 hr 500 mg PO DAILY Qty: 20 RF: 0 metformin 500 mg tablet 500 mg PO DAILY Qty: 20 RF: 0 metformin 500 mg tablet 500 mg PO DAILY Qty: 20 RF: 0 Invega Sustenna 234 mg/1.5 mL syringe 234 mg IM QMONTH Qty: 1.5 RF: 0 sulfamethoxazole-trimethoprim [Bactrim DS] 800-160 mg tablet 1 tab PO BID Qty: 6 RF: 0
[2020-12-10 01:48] LABS: Prothrombin Time 11.2 SECONDS (10.1-12.7)
[2020-12-10] MEDS: SODIUM CHLORIDE 0.9% 1,000 ML 1000 ML IV (01:49)
[2020-12-10 01:50] LABS: Add Manual Diff / Slide Review NO; Basophils Absolute Auto 0 /uL (0-100); Basophils Percent Auto 0.4 % (0-2); Eosinophils Absolute Auto 200 /uL (0-450); Eosinophils Percent Auto 2.8 % (2-4); Hematocrit 38.1 % (36-46); Hemoglobin 12.6 g/dL (12.0-16.0); Lymphocytes Absolute Auto 700 /uL (1100-4500); Lymphocytes Percent Auto 10.8 % (25-40); Mean Corpuscular HGB Conc 33.1 % (30-36); Mean Corpuscular Hemoglobin 28.5 PG (26-34); Monocytes Absolute Auto 500 /uL (0-900); Monocytes Percent Auto 7.9 % (3-14); Neutrophils Absolute Auto 5300 /uL (1500-7000); Neutrophils Percent Auto 78.1 % (50-75); Platelet Count 301 X10^3/uL (150-400); Red Blood Cell Count 4.44 X10^6/uL (4.0-5.2); Red Cell Distribution Width 13.8 % (11.6-14.8); White Blood Cell Count 6.7 X10^3/uL (4.5-11.0)
[2020-12-10 01:54] LABS: Alanine Aminotransferase 14 IU/L (<35); Albumin Globulin Ratio 1.2 (1.0-2.8); Alkaline Phosphatase 83 U/L (38-126); Aspartate Aminotransferase 18 IU/L (14-36); BUN Creatinine Ratio 12.7 (6-22); Bilirubin Total 0.3 mg/dL (0.2-1.3); Blood Urea Nitrogen 8 mg/dL (7-17); C-Reactive Protein Quant 1.3 mg/dL (<1.0); Calcium 9.5 mg/dL (8.4-10.2); Carbon Dioxide 26 mmol/L (22-32); Chloride 104 mmol/L (98-107); Creatine Kinase 43 U/L (30-135); Estimated Glomerular Filt Rate > 60.0 mL/min (>60); Globulin 3.4 g/dL (1.7-4.1); Glucose 178 mg/dL (80-110); HEMOLYSIS < 15 (0-50); Magnesium 1.9 mg/dL (1.6-2.3); Potassium 3.9 mmol/L (3.4-5.1); Sodium 137 mmol/L (137-145); Total Protein 7.4 g/dL (6.3-8.2)
[2020-12-10 02:04] LABS: Erythrocyte Sedimentation Rate 24 MM/HR (0-20); NT-proBNP (BNP-Adult 18+) 56 pg/mL (<125); Troponin I < 0.012 ng/mL (0.01-0.034)
[2020-12-10 02:32] LABS: COVID19 - ADMIT (NP swab/PCR) Negative (Negative)
== END 2020-12-10 05:14 | disposition home or self-care (01) ==
PROVIDERS: Emergency Provider Emergency Medicine
DX: L93.1 Subacute cutaneous lupus erythematosus (principal); R07.9 Chest pain, unspecified; Z20.822 Contact with and (suspected) exposure to COVID-19
CPT/HCPCS: 36415; 71045; 80053; 82550; 83735; 83880; 84484; 85025; 85610; 85651; 86140; 87040; 87635; 93005; 96360; 99284; C9803

== ENCOUNTER 2022-11-18 01:24 | Emergency (ER) | payer MEDICARE, OTHER, SELFPAY ==
[2022-11-18 02:00] VITALS: BP 116/71; PULSE 92; RESP 19; TEMP 36.6; O2SAT 99; BMI 28.3
--- NOTE | 2022-11-18 02:07 | ED.GENADULT ---
HPI - General Adult General Chief complaint: Urogenital-Female Stated complaint: rt hand infected, uti, skin darker from lupus Time Seen by Provider: 11/18/22 01:25 Source: patient Mode of arrival: Ambulatory History of Present Illness HPI narrative: 67-year-old female with history of schizophrenia, lupus, obesity, chronic knee pain, homelessness presents with multiple complaints. She states that she has been driving around much of the day and now is having swelling in both of her feet. She states it hurts to walk but improves with rest. She denies any dizziness, weakness or lightheadedness. She denies chest pain, shortness of breath or cough. She denies any fever or chills. She states that she is been to various emergency departments off and on over the past few months and is trying to get somebody to write her Plaquenil which she has not had in some time. Finally she has some discomfort in her right 4th finger. She is been seen multiple times over the past year or so for complications stemming from what sounds like a ring that had acted as a tourniquet and had to be cutoff. She is had chronic pain, swelling with episodic draining and concerns for tenosynovitis. She is seen multiple doctors including an orthopedist as recently as a month or 2 ago for evaluation. She states on the whole her symptoms are better, she has less swelling, less pain, no drainage but wanted it looked at nonetheless. Related Data Previous Rx's Medication Instructions Recorded olanzapine 20 mg tablet (Zyprexa) 20 mg PO BEDTIME #10 tabs 06/16/20 metformin 500 mg tablet 500 mg PO DAILY #20 tabs 09/03/20 paliperidone palmitate 234 mg/1.5 234 mg (1.5 mL) IM QMONTH #1.5 mL 09/03/20 mL intramuscular syringe (Invega Sustenna) metformin 500 mg tablet 500 mg PO DAILY #20 tabs 09/10/20 metformin 500 mg tablet,extended 500 mg PO DAILY #20 tabs 09/10/20 release 24 hr sulfamethoxazole 800 1 tab PO BID #6 tabs 09/11/20 mg-trimethoprim 160 mg tablet (Bactrim DS) hydrocortisone 1 % topical ointment 1 applic topical BID-TID PRN skin 12/10/20 irritation #28.35 grams hydroxychloroquine 200 mg tablet 200 mg PO DAILY #20 tabs 12/10/20 doxycycline hyclate 100 mg tablet 100 mg PO BID #20 tabs 11/18/22 hydroxychloroquine 200 mg tablet 200 mg PO DAILY #30 tabs 11/18/22 (Plaquenil) Allergies Allergy/AdvReac Type Severity Reaction Status Date / Time alendronate sodium Allergy Verified 09/01/20 20:53 Penicillins Allergy Verified 09/01/20 20:53 Review of Systems Review of Systems Narrative: GENERAL: Denies chills, fatigue, malaise, fever, sweats. HEENT: Denies sinus pain, ear pain, sore throat, difficulty swallowing, dizziness. RESPIRATORY: Denies dyspnea, cough, wheezing, hemoptysis, sputum. CARDIOVASCULAR: Denies chest pain, palpitations, orthopnea, edema, GASTROINTESTINAL: Denies nausea, vomiting, abdominal pain, diarrhea, constipation, melena. : See HPI MUSCULOSKELETAL: See HPI SKIN: Denies rash, skin lesions, or other NEUROLOGIC: Denies weakness, headache, numbness, change in speech, confusion, seizures, incoordination. PSYCHIATRIC: No concerning psychosocial issues. 12 point review of systems is negative except for those stated above Patient History Medical History Co-occurrence of multiple psychiatric disorders Medical history unknown Social History Smoking Status: Current every day smoker Smoking Status: Current every day smoker tobacco type: cigarettes alcohol intake frequency: a few times a month Substance Use Type: does not use Exam Narrative Exam Narrative: GENERAL: [67] year old patient appears stated age. Well-developed patient, in mild distress. HEAD: Atraumatic. Normocephalic. EYES: Pupils equal round and reactive. Extraocular motions intact. No scleral icterus. No injection or drainage. ENT: Nose without bleeding, purulent drainage. Throat without erythema, tonsillar hypertrophy or exudate. Airway patent. NECK: Trachea midline. Non tender CARDIOVASCULAR: Regular rate and rhythm without murmurs, gallops, or rubs. RESPIRATORY: Clear to auscultation. Breath sounds equal bilaterally. No wheezes, rales, or rhonchi. GASTROINTESTINAL: Abdomen soft, non-tender, nondistended. EXTREMITIES: Right 4th finger swollen, no erythema or warmth, evidence of chronic injury at the base of the finger where she states a ring was cutoff at least a year ago. She states that there was a big blister on her finger a few weeks if not a month ago that drained and she has been seen multiple times since then and states that it is much better now than it was then. She denies any numbness or tingling BACK: Nontender without deformity or crepitance. No flank tenderness. NEURO: AOx3. \ Initial Vital Signs Initial Vital Signs: Vital Signs Temperature 98 F 11/18/22 02:00 Pulse Rate 92 H 11/18/22 02:00 Respiratory Rate 19 11/18/22 02:00 Blood Pressure 116/71 11/18/22 02:00 Pulse Oximetry 99 11/18/22 02:00 Oxygen Delivery Method Room Air 11/18/22 02:00 Course Orders Ordered: ED Orders 11/18/22 02:14 Urine Culture Stat Urine Microscopic Stat Vital Signs Vital signs: Vital Signs - 8 hr 11/18/22 02:00 Temperature 98 F Pulse Rate 92 H Respiratory Rate 19 Blood Pressure 116/71 Pulse Oximetry 99 Oxygen Delivery Method Room Air Medical Decision Making Lab Data Labs: Lab Results 11/18/22 Range/Units 02:14 Urine RBC 1-5/hpf (0-5/HPF) Urine WBC 5-10/hpf H (0-5/HPF) Ur Squamous Epith Cells 0-1 /hpf (0-5/HPF) Urine Bacteria Few (2-10) H (None) Ur Culture Indicated? Specimen cultured Urine Dip Bedside Urine Glucose Negative Bedside Urine Bilirubin - Negative Bedside Urine Ketone - Negative Urine Specific [place] 1.025 Bedside Urine Occult Blood - Negative Bedside Urine pH 6.0 Bedside Urine Protein - Negative Bedside Urine Urobilinogen - Negative Bedside Urine Nitrite - Negative Bedside Urine Leukocytes + 70 Esterase Point of care testing: Urine Dip Bedside Urine Glucose Negative Bedside Urine Bilirubin - Negative Bedside Urine Ketone - Negative Urine Specific [place] 1.025 Bedside Urine Occult Blood - Negative Bedside Urine pH 6.0 Bedside Urine Protein - Negative Bedside Urine Urobilinogen - Negative Bedside Urine Nitrite - Negative Bedside Urine Leukocytes + 70 Esterase MDM Narrative Medical decision making narrative: [67] year old patient presents with request for medication refill re-evaluation of swollen finger Multiple etiologies for patient's symptoms considered including, but not limited to: [Urinary tract infection versus skin infection of right 4th finger versus tenosynovitis versus other] Prior Charts reviewed in our EMR Primary Historian: patient Labs reviewed and interpreted by myself: Urine positive for leukocytes Patient's history and physical exam is reassuring. She states that she is been having trouble with this finger for at least a year and has had multiple visits for it. She states it looks much better than it had a month ago and denies any new pain, swelling or redness, no recent drainage, no signs of sepsis, no hand swelling or lymphangitis. She does have some suggestion of an early UTI and we will give antibiotics for the coverage of these 2 entities, she will be encouraged to follow closely with her orthopedic surgeon to touch base regarding her finger and Plaquenil be renewed Patient's symptoms improved over duration of stay with above-stated therapies. Findings and discharge diagnosis discussed with patient/family followed by verbalization of understanding Return precautions discussed with patient/family whom verbalize understanding of diagnosis and plan Discharge Plan Departure Patient Disposition: Home Clinical Impression: Acute UTI, Finger infection Instructions: DI for Urinary Tract Infection (UTI) Activity Restrictions/Additional Instructions: *You have been diagnosed with [medication refill, urinary tract infection] *What to do: *Please continue to take your regular medications as directed. [x ] New medication prescriptions sent to your pharmacy: [[facility] in [facility] ] [ ] New medication written as a paper prescription [ ] No new medications given *Please follow up with your primary orthopedic provider in 2-3 days, call for an appointment. Let them know you were seen in the Emergency Department and that we ask that you be seen in follow up. As we discussed we have included the contact information for local ortho in the event that you have trouble connecting in [place]. *If you do not have a primary care provider please contact the [facility] Resource line at [phone]. They will ask some questions about your medical history and help get you set up with a doctor in the community. *Return to Emergency Department if you should have any new, worsening or concerning symptoms, such as [fever greater than 101 F, shaking chills, worsening pain, persistent vomiting or other bothersome symptoms] Prescriptions: New doxycycline hyclate 100 mg tablet 100 mg PO BID Qty: 20 0RF hydroxychloroquine [Plaquenil] 200 mg tablet 200 mg PO DAILY Qty: 30 0RF No Action olanzapine [Zyprexa] 20 mg tablet 20 mg PO BEDTIME Qty: 10 0RF metformin 500 mg tablet extended release 24 hr 500 mg PO DAILY Qty: 20 0RF metformin 500 mg tablet 500 mg PO DAILY Qty: 20 0RF metformin 500 mg tablet 500 mg PO DAILY Qty: 20 0RF Invega Sustenna 234 mg/1.5 mL syringe 234 mg IM QMONTH Qty: 1.5 0RF sulfamethoxazole-trimethoprim [Bactrim DS] 800-160 mg tablet 1 tab PO BID Qty: 6 0RF hydroxychloroquine 200 mg tablet 200 mg PO DAILY Qty: 20 0RF hydrocortisone 1 % ointment 1 applic topical BID-TID PRN (Reason: skin irritation) Qty: 28.35 0RF Referrals: Yamil Stapleton MD [Physician] - Stand Alone Forms: Patient Portal/API
[2022-11-18 02:24] LABS: Bacteria Urine Few (2-10); RBC Urine 1-5/HPF (0-5/HPF); WBC Urine 5-10/HPF (0-5/HPF)
[2022-11-18 02:25] LABS: Culture Indicated Urine Specimen Cultured; Squamous Epithelial Cell Urine 0-1 /HPF (0-5/HPF)
--- NOTE | 2022-11-18 02:29 | PC.NURSE ---
Pt's right ring finger swollen, has circumferential wound at base of finger. Pt states finger is numb with pain. states has been seen previously for finger wound.
== END 2022-11-18 02:32 | disposition home or self-care (01) ==
PROVIDERS: Emergency Provider Emergency Medicine
DX: Z76.0 Encounter for issue of repeat prescription (principal); N39.0 Urinary tract infection, site not specified; L08.9 Local infection of the skin and subcutaneous tissue, unspecified
CPT/HCPCS: 81003; 81015; 87086; 99281; 99283

== ENCOUNTER 2023-04-06 01:30 | Emergency (ER) | payer MEDICARE, OTHER, SELFPAY ==
[2023-04-06 01:42] VITALS: PULSE 110; O2SAT 98
[2023-04-06 01:43] VITALS: BP 140/63; PULSE 106; O2SAT 98
[2023-04-06 01:48] VITALS: BP 140/63; PULSE 105; RESP 18; TEMP 36.6; O2SAT 98; BMI 37.0
--- NOTE | 2023-04-06 01:54 | PC.NURSE ---
pt c/o fingers locking up and being unable to move them, pt moving fingers at this time, see triage note for further c/o
--- NOTE | 2023-04-06 01:54 | ED.EXTPRO ---
HPI - Extremity Problem General Chief complaint: Extremity Problem,Nontraumatic Stated complaint: hands curling not sure if arthritis Time Seen by Provider: 04/06/23 01:54 Source: patient Mode of arrival: Ambulatory History of Present Illness HPI Narrative: 67-year-old woman with history of schizophrenia who recently had her Invega injection, currently homeless living in her car has complaints of rheumatoid arthritis and is wondering where she can have her hemoglobin A1c checked, get a physical exam and have somebody prescribe her long-term medications for her rheumatoid arthritis. She does not currently have a primary care doctor. Is working with social science teacher trying to get into more stable housing and apparently is scheduled to meet with them on April 09. She has checked into multiple shelters in the event told ?they are all full?. She complains of right knee pain when she is trying to sleep in her car. Also complains of hand pain and hand cramping that seems to resolve with massage and Gatorade. She has found that ibuprofen has been helpful in the past but does not currently have any available to her. Related Data Previous Rx's Medication Instructions Recorded olanzapine 20 mg tablet (Zyprexa) 20 mg PO BEDTIME #10 tabs 06/16/20 metformin 500 mg tablet 500 mg PO DAILY #20 tabs 09/03/20 paliperidone palmitate 234 mg/1.5 234 mg (1.5 mL) IM QMONTH #1.5 mL 09/03/20 mL intramuscular syringe (Invega Sustenna) metformin 500 mg tablet 500 mg PO DAILY #20 tabs 09/10/20 metformin 500 mg tablet,extended 500 mg PO DAILY #20 tabs 09/10/20 release 24 hr sulfamethoxazole 800 1 tab PO BID #6 tabs 09/11/20 mg-trimethoprim 160 mg tablet (Bactrim DS) hydrocortisone 1 % topical ointment 1 applic topical BID-TID PRN skin 12/10/20 irritation #28.35 grams hydroxychloroquine 200 mg tablet 200 mg PO DAILY #20 tabs 12/10/20 doxycycline hyclate 100 mg tablet 100 mg PO BID #20 tabs 11/18/22 hydroxychloroquine 200 mg tablet 200 mg PO DAILY #30 tabs 11/18/22 (Plaquenil) Allergies Allergy/AdvReac Type Severity Reaction Status Date / Time alendronate sodium Allergy Verified 09/01/20 20:53 Penicillins Allergy Verified 09/01/20 20:53 Review of Systems Review of Systems Narrative: Pertinent positive and negative findings as per HPI Patient History Medical History Co-occurrence of multiple psychiatric disorders Medical history unknown Social History Smoking Status: Current every day smoker Smoking Status: Current every day smoker tobacco type: cigarettes alcohol intake frequency: a few times a month Substance Use Type: does not use Exam Initial Vital Signs Initial Vital Signs: Vital Signs Temperature 97.8 F 04/06/23 01:48 Pulse Rate 105 H 04/06/23 01:48 Respiratory Rate 18 04/06/23 01:48 Blood Pressure 140/63 04/06/23 01:48 Pulse Oximetry 98 04/06/23 01:48 Oxygen Delivery Method Room Air 04/06/23 01:48 General: Alert appropriate,in no acute distress Respiratory: Able to speak in full sentences, no obvious respiratory distress Skin: Vitiligo with some dryness over the hands and forearms. Neurologic: Grossly intact no obvious asymmetries or abnormalities Extremities: She does not have active synovitis nor any hand spasms. She has a Dupuytren contracture affecting the small finger on the right hand. Ring finger on the right hand is slightly swollen with a soft tissue deformity where a ring has recently been cut off. No signs of infection. Her right knee has no significant effusion. Range of motion in both knees is similar and slightly limited secondary to arthritis pain. Psych: Good eye contact, fluent nonpressured speech Course Vital Signs Vital signs: Vital Signs - 8 hr 04/06/23 01:48 Temperature 97.8 F Pulse Rate 105 H Respiratory Rate 18 Blood Pressure 140/63 Pulse Oximetry 98 Oxygen Delivery Method Room Air MDM - Extremity (Nontraumatic) MDM Narrative Medical decision making narrative: CC: Right knee pain, bilateral hand pain Complicating co-morbidities: Psychiatric difficulties, currently living in her car Data collected from: patient Social determinants of health that may influence the patients condition: Housing instability Medical records reviewed: Multiple prior ER visits with various complaints are reviewed Differential considered: Arthritis, infection, trauma, Exam documented above, pertinent findings include: 67-year-old woman who is alert and appropriate, good eye contact and appropriate speech and thought patterns. She has multiple chronic medical complaints. Chest some mild pain in the right knee without significant redness or effusion. No other specific concerns to be addressed in the emergency department today Treatments: 400 mg of oral ibuprofen Discussion: 67-year-old woman with long psychiatric history, currently on Invega, she does have a car and is living in this and is working with social science teacher on more stable housing situations. She has multiple chronic medical complaints and I reassured her that each of these do deserve to be reviewed and evaluated however this needs to be done in primary care setting. 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 She had complaints about hand cramping at this time no evidence of significant hand cramping and chronic findings with a Dupuytren's contracture dryness, vitiligo and the abnormality in the right ring finger from the ring that was recently cut off. There is no indication for additional blood work, imaging studies or hospitalization at this time. And she is discharged home. Discharge Plan Departure Patient Disposition: Home Clinical Impression: Arthritis of right knee Instructions: DI for Arthritis Activity Restrictions/Additional Instructions: I am sorry that you are having a difficult and uncomfortable time sleeping in your car. I am glad that you do have an appointment coming up in a couple of days to continue to work on additional housing options for you. In the meantime, I have given you ibuprofen for this evening to help with the hand and the knee pain. Fortunately I am not seeing any signs of infection or reasons for additional workup or hospitalization at this time. If you are able to I would certainly recommend getting some ibuprofen [id number]. You can use 2 pills every 6 hours for arthritis-type pain. I appreciate your questions regarding diabetes follow-up, hemoglobin A1c, chronic management of your rheumatoid arthritis and a physical exam. These are all things that you should be able to discuss however, you do need to find a primary care doctor to help with management of chronic medical problems. This is not something we are able to provide from the emergency department If you find that you are getting worse or develop any new symptoms, please feel free to return to the emergency department for further evaluation. Prescriptions: No Action olanzapine [Zyprexa] 20 mg tablet 20 mg PO BEDTIME Qty: 10 0RF metformin 500 mg tablet extended release 24 hr 500 mg PO DAILY Qty: 20 0RF metformin 500 mg tablet 500 mg PO DAILY Qty: 20 0RF metformin 500 mg tablet 500 mg PO DAILY Qty: 20 0RF Invega Sustenna 234 mg/1.5 mL syringe 234 mg IM QMONTH Qty: 1.5 0RF sulfamethoxazole-trimethoprim [Bactrim DS] 800-160 mg tablet 1 tab PO BID Qty: 6 0RF hydroxychloroquine 200 mg tablet 200 mg PO DAILY Qty: 20 0RF hydrocortisone 1 % ointment 1 applic topical BID-TID PRN (Reason: skin irritation) Qty: 28.35 0RF doxycycline hyclate 100 mg tablet 100 mg PO BID Qty: 20 0RF hydroxychloroquine [Plaquenil] 200 mg tablet 200 mg PO DAILY Qty: 30 0RF Stand Alone Forms: Patient Portal/API
[2023-04-06] MEDS: IBUPROFEN 400 MG TABLET PO (02:17)
== END 2023-04-06 02:22 | disposition home or self-care (01) ==
PROVIDERS: Emergency Provider Emergency Medicine
DX: M17.11 Unilateral primary osteoarthritis, right knee (principal)
CPT/HCPCS: 99282; 99283